=== PATIENT | female | born 1945 | race Caucasian/White ===

== ENCOUNTER → 2018-01-14 09:15 | Outpatient (CLI) | payer MEDICARE, OTHER, SELFPAY | PROVIDERS: PCP Family Medicine; Visit Provider Student in an Organized Health Care Education/Training Program | DX: M25.562 Pain in left knee (principal); S83.272D Complex tear of lateral meniscus, current injury, left knee, subsequent encounter; S83.232D Complex tear of medial meniscus, current injury, left knee, subsequent encounter; X58.XXXD Exposure to other specified factors, subsequent encounter; M17.12 Unilateral primary osteoarthritis, left knee | CPT/HCPCS: 20610; J1040 ==

== ENCOUNTER → 2018-03-04 10:50 | Outpatient (BNVA) | payer MEDICARE, OTHER, SELFPAY | PROVIDERS: Visit Provider Student in an Organized Health Care Education/Training Program | DX: M17.12 Unilateral primary osteoarthritis, left knee (principal); M25.462 Effusion, left knee | CPT/HCPCS: 20610; 99213; J7325 ==

== ENCOUNTER 2018-09-23 09:40 | Outpatient (CLI) | payer MEDICARE, OTHER, SELFPAY ==
--- NOTE | 2018-09-23 09:23 | DI.RAD_ITS ---
SYMPTOM/DIAGNOSIS: SURGICAL PLANNING LT TKA BILATERAL LOWER EXTREMITIES: 09/23/18 Bilateral AP views of the lower extremities were obtained for leg length determination. There are mild degenerative changes of both hips. There are degenerative changes of the joints of both knees.
== END 2018-09-23 10:00 ==
PROVIDERS: PCP Family Medicine; Referring Provider Family Medicine; Visit Provider Student in an Organized Health Care Education/Training Program
DX: M25.562 Pain in left knee (principal); M16.0 Bilateral primary osteoarthritis of hip; M17.0 Bilateral primary osteoarthritis of knee; I10 Essential (primary) hypertension
CPT/HCPCS: 99213; 77073

== ENCOUNTER 2018-09-27 07:05 | Outpatient (CLI) | payer MEDICARE, OTHER, SELFPAY ==
[2018-09-27 08:25] LABS: ALT 30 U/L (12-78); AST 21 U/L (15-37); Albumin 3.7 g/dL (3.4-5.0); Alkaline Phosphatase 96 U/L (46-116); Anion Gap 5.7 mmol/L (3-11); BUN 12 mg/dL (7-18); Bilirubin, Total 0.3 mg/dL (0.2-1.0); CO2 32.3 mmol/L (21.0-32.0); Calcium 9.2 mg/dL (8.5-10.1); Chloride 105 mmol/L (98-107); Cholesterol 172 mg/dL (50-200); Glucose 95 mg/dL (70-100); HDL Cholesterol 48 mg/dL (40-60); LDL CHOLESTEROL 91 mg/dL (<100); Potassium 4.3 mmol/L (3.5-5.1); Sodium 143 mmol/L (136-145); Total Protein 7.1 g/dL (6.4-8.2); Triglyceride 202 mg/dL (30-150)
== END 2018-09-27 07:25 ==
PROVIDERS: PCP Family Medicine; Visit Provider Family Medicine
DX: E78.5 Hyperlipidemia, unspecified (principal)
CPT/HCPCS: 36415; 80053; 80061; 83721

== ENCOUNTER 2018-10-18 09:58 | Outpatient (CLI) | payer MEDICARE, OTHER, SELFPAY ==
[2018-10-18 11:15] LABS: HCT 41.8 % (36.0-46.0); HGB 13.5 g/dL (12.0-15.5); Mean Corp. HGB Concentration 32.3 g/dL (32.0-36.0); Mean Corpuscular Hemoglobin 32.1 pg (27.0-33.0); Mean Corpuscular Volume 99.3 fL (80-95); Mean Platelet Volume 9.7 fL (8.0-11.0); Platelet Count 248 x1000/uL (130-400); RBC 4.21 m/cumm (4.00-5.20); RBC Distribution Width 12.2 % (11.7-14.6); White Blood Cell Count 5.85 k/cumm (4.4-10.8)
[2018-10-18 12:05] LABS: Anion Gap 8.8 mmol/L (3-11); BUN 13 mg/dL (7-18); CO2 28.2 mmol/L (21.0-32.0); Calcium 9.7 mg/dL (8.5-10.1); Chloride 102 mmol/L (98-107); Glucose 85 mg/dL (70-100); Potassium 4.6 mmol/L (3.5-5.1); Sodium 139 mmol/L (136-145)
== END 2018-10-18 10:18 ==
PROVIDERS: PCP Family Medicine; Visit Provider Student in an Organized Health Care Education/Training Program
DX: M25.562 Pain in left knee (principal); M17.12 Unilateral primary osteoarthritis, left knee; J44.9 Chronic obstructive pulmonary disease, unspecified; J45.909 Unspecified asthma, uncomplicated; I63.9 Cerebral infarction, unspecified; E66.9 Obesity, unspecified; Z01.818 Encounter for other preprocedural examination
CPT/HCPCS: 36415; 80048; 85027

== ENCOUNTER 2018-10-24 09:52 | Inpatient (IN) | payer MEDICARE, OTHER, SELFPAY ==
[2018-10-24] VITALS (9 sets, daily range): BP systolic 112–138; BP diastolic 55–74; PULSE 55–83; RESP 11–18; TEMP 36.6–36.7; O2SAT 92–98
[2018-10-24] MEDS: Lactated Ringers 1,000 ML 80 ML IV ×2 (11:02→15:45)
[2018-10-24] MEDS: Bupivacaine 0.25% Pres-Free 30 ML VIAL ×2 (11:31→13:57)
[2018-10-24] MEDS: Bupivacaine LIPOSOME/PF 133 MG/10 ML VIAL IJ ×2 (11:31→13:57)
[2018-10-24] MEDS: Celecoxib 200 MG CAP 400 MG PO (12:06)
[2018-10-24] MEDS: Acetaminophen 500 MG TAB 1000 MG PO ×2 (12:06→19:36)
[2018-10-24] MEDS: oxyCODONE-CR 10 MG TABCR PO (12:06)
[2018-10-24] MEDS: Gabapentin 300 MG CAP PO ×2 (12:06→21:39)
[2018-10-24] MEDS: ceFAZolin 2 GM/50 ML BAG IVPB (12:38)
[2018-10-24] MEDS: Normal Saline 20 ML VIAL (13:57)
[2018-10-24] MEDS: Ketorolac 30 MG/ML VIAL (13:57)
--- NOTE | 2018-10-24 14:34 | W.PM.OP ---
Date of service: 10/24/18 Time of Service: 14:35 Operative Note DATE OF PROCEDURE: 10/24/18 PRE-OP DIAGNOSIS: Left knee osteoarthritis POST-OP DIAGNOSIS: same PROCEDURE: Left Total Knee Replacement SURGEON: Alejandro Obando APPLICATIONS PROJECT MANAGER: Quinton Chirinos ANESTHESIA: regional and spinal ESTIMATED BLOOD LOSS: 100 PATHOLOGY: none sent TOURNIQUET TIME: 31 COMPLICATIONS: None Patient was transported to: PACU Patient's condition: stable Implants: 1. Depuy Attune Posterior Stabilized Femoral Component, Size 6 2. Depuy Attune Fixed Platform Tibial Component, Size 5 3. Depuy Attune 6x6 fixed, Stabilized Poly 4. Depuy Attune Patellar Component, Size 35 Indications: I have seen Jolynn in clinic for symptoms of left knee arthritis, confirmed with radiographic findings. She has exhausted nonoperative methods and was having significant limitations in daily function and desired better function and less pain. I discussed the technical details of a knee replacement. I explained the risks of the procedure to include, but not limited to, bleeding, infection, pain, stiffness, fracture, damage to nerves and vessels, damage to muscles and tendons, loosening, need for repeat procedure, blood clot and cardiopulmonary demise. Despite these risks, she elected to proceed. Findings: There was significant signs of arthritis throughout the knee. This was seen primarily in the medial compartment and the patellofemoral joint. Procedure Description: Jolynn was greeted in the preoperative holding area where the correct side was identified and marked. The consent was reviewed with the patient and signed. The history and physical was updated. All questions were answered. Preoperative mediacations were administered: Acetaminophen 1000mg, Celebrex 400mg, Gabapentin 300mg, and Oxycontin 10mg. An adductor canal block was then administered by the anesthesia team in the PACU. She was taken back to the operating room. A spinal anesthestic was then attempted but unsuccessful so a general anesthetic was administered. The patient was placed into the supine position on the operating room table. A nonsterile tourniquet was placed high onto the leg but only used for cementing. Posts were placed for positioning during the procedure. All bony prominences were well padded. Prophylactic antibiotics in the form of cefazolin were administered. 1g of Tranxemic Acid was given intravenously within 30 minutes of incision. The left leg was then prepped with Chloraprep and draped in a standard fashion with impervious stockinette and extremity drape with Iodine impregnated skin protection. A timeout to confirm correct identity, side and site, procedure, allergies, anesthesia, and medical concerns was performed. With the knee in some flexion, a midline incision was made overlying the knee. Full thickness skin flaps were raised once the extensor mechanism was encountered. These were raised medially and laterally. Any bleeding was controlled with electrocautery. Once the extensor mechanism was fully exposed, a medial parapatellar arthrotomy was performed in a flexed position. All bleeding from the arthrotomy and the geniculate arteries was coagulated. A medial subperiosteal peel was performed with electrocautery to the midcoronal plane. The fat pad was removed while keeping the patellar tendon protected. The anterior distal femur synovium was removed for later visualization. The ACL and PCL were resected and the anterior horn of the lateral meniscus was transected. The knee was then flexed with the patella everted. Large osteophytes from the tibia were removed. Large osteophytes from the femur were removed. Using a step drill, and based on preoperative templating, the femoral canal was entered. This was done with a step drill without any difficulty. The intramedullary distal femoral cut guide was inserted, set to a 5 degree valgus cut and 9mm cut thickness. The distal femoral cut guide was then held in position and pinned. With the soft tissues protected, the distal cut was performed. This was passed over a few times to ensure a planar cut. I then turned attention to the tibia. The extramedullary guide was placed onto the leg. The distal aspect was slid medial to adjust for position of center of ankle and stay in line with shaft of the tibia. Approximately 3-5 degrees of posterior slope was kept in the proximal cutting guide. The center of the guide was aligned with the PCL. The stylus was used to assess cut thickness. The medial side, most involved side, was set for a 4mm cut. This was then held in position and pinned into place with 2 additional pins and a cross pin for stability. The medial and lateral collateral ligaments were protected and the cut was performed. With this completed, it was assessed and noted to be of appropriate dimensions. The guide was removed. A spacer block was inserted and the knee was brought into extension. The 6mm spacer block provided full extension, without hyperextension and with stability of both the medial and lateral collateral ligaments was assessed. The pins from the femur and the tibia were then removed. The distal femur was then sized. The anterior stylus was placed onto the lateral ridge of the anterior femur. This indicated a size 6 femur. The external rotation of the guide was adjusted to 3 degrees to match the epicondylar axis, perpendicular to Polk?s line. The 4-in-1 cutting guide was the placed. The posterior medial femur cut was evaluated and appeared of good thickness. The spacer block was inserted underneath the cutting guide and stability was confirmed in 90 degrees of flexion. An vladimir wing was used to confirm appropriate position of the anterior cut to avoid notching. This cutting guide was ensured to be flush on the cut surface and then pinned into place with headed pins. While protecting the soft tissues, quad tendon, and collateral ligaments, the anterior and posterior cuts were performed with a saw. The central two pins were removed and the posterior and anterior chamfers were cut next. The notch-cutting guide was placed. This was pinned to lateralize the femoral component as much as possible while keeping it flush on the cut surface. This was then pinned into position. A reciprocating saw was used to make the notch cut. A rasp smoothed the cut surfaces. A trial posterior stabilized femoral component was then inserted, impacted down to the cut surfaces, and the lug holes were drilled. A provisional trial tibial component was placed and the knee was brought through range of motion. There was noted to be excellent extension and flexion. There was no significant instability. The patella was tracking without thumbs. The tibial cut surface was fully exposed. The medial and lateral menisci were removed. The tibia was then sized as a 5. The tibia had been previously marked during trialing to correspond to the center of the tibial component to help with rotation. The trial was aligned to this quinton, approximately rotated to the medial 1/3rd of the tibial tubercle. The trial was pinned into place. The tibia was prepared with a reamer and a keel punch. The knee was then brought into extension and the patella was measured as 25 mm. Using the patellar clamp and cut guide, this was resected to a flat surface with at least 13mm of thickness remaining. The size 35 patella fit the best. This was oriented and then clamped into position. The lugs were drilled. The trial components were removed. The final components, except for the polyethylene were opened on the back table. The periosteal and capsular tissues, especially posteriorly, around the knee were then systematically injected with a periarticular cocktail consisting of 50cc 0.25% Marcaine, 30mg Ketorolac, 10cc of Exparal and 50cc of injectable saline. The tourniquet was then inflated to 275mmHg. The knee was thoroughly irrigated with a pulse lavage and dried. On the back table, with the implants opened, the cement was mixed. 2 batches of antibiotic laden cement were prepared with vacuum assistance. After the cement was ready a small amount was placed on to the back side of the tibial component at the keel. A small amount was placed onto the posterior flange of the femur. Cement was manual pressurized and impregnated into the cut surface of the tibia. The tibial component was then inserted into the cut surface and impacted into position. Excess cement was removed and the component was reimpacted. Again, excess cement was removed and our attention was then turned to the femur. The femoral cut surface was once again dried and cement was manually impacted into the cut surface. The femoral component was lined with the lug holes and impacted. Excess cement was removed. It was ensured to be down against the cut surface. The trial polyethylene was then inserted and the leg was brought out into full extension for the duration of the cement curing process, approximately 15min. Cement was lastly manually impacted into the cut surface of the patella and the patellar button was clamped into position and held. During this process attention was turned to the gutters of the knee and for all interfaces for any excess cement. After the cement had finally cured, approximately 15min, the clamp was removed from the patella and the knee was taken through range of motion. A size 6mm polyethylene component provided the best range of motion and stability with less than 2mm gapping with medial and lateral stress and full extension without significant hyperextension. The patella was tracking with a no-thumbs technique. The trial poly was removed and once again the knee was checked for any loose, excess, or errant cement. The poly component was then inserted and impacted into position after cleaning and drying the tibial tray. The capsule was then reapproximated with a No. 1 Vicryl at multiple locations. The capsule was finally closed with a No. 2 Stratafix, barbed suture. The tourniquet was then released and the arthrotomy appeared watertight without significant bleeding. The second dosing of 1g TXA was started. Deep tissues were then reapproximated with 0 Vicryl and 2-0 Vicryl. The skin was closed with a running 3-0 Monocryl in a subcuticular fashion. This was reinforced with skin glue. A Mepilex silver dressing was applied along with a [id number] KEITH wrap. A CryoCuff was applied. Jolynn was transferred to the hospital bed without difficulty an suffering no apparent complication. She has a good prognosis. Physical therapy will start today and without restrictions, weight-bearing as tolerated. Aspirin 81mg BID will be used for DVT prophylaxis.
[2018-10-24] MEDS: Mometasone 220 MCG 14 DOSE INHALER 2 PUFF IH (19:34)
[2018-10-24] MEDS: Celecoxib 100 MG CAP 200 MG PO (19:35)
[2018-10-24] MEDS: Aspirin E.C. 81 MG TABEC PO (19:36)
[2018-10-24] MEDS: Escitalopram 10 MG TAB PO (21:39)
[2018-10-24] MEDS: Atorvastatin 10 MG TAB PO (21:39)
[2018-10-24] MEDS: oxyCODONE 5 MG TAB PO (21:57)
--- NOTE | 2018-10-24 22:56 | NUR.NOTE ---
Nursing Note: At 17:20 , pt received from [facility], post op left total knee anthrosplasty. AO x 4. Denied of discomfort. After an hour, PT worked out with her, able to ambulate and stayed on recliner chair until bedtime. Cryo cuff on incision site with mepilex and yadiel wrap dressing which is C/D/I. Medicated with oxycodone at 2200 hrs. and with good relief.
[2018-10-25 00:38] VITALS: BP 110/56; PULSE 64; RESP 18; TEMP 36.5; O2SAT 92
[2018-10-25 03:55] VITALS: BP 116/66; PULSE 74; RESP 18; TEMP 36.9; O2SAT 94
[2018-10-25] MEDS: oxyCODONE 5 MG TAB PO ×3 (04:00→11:34)
[2018-10-25] MEDS: Lactated Ringers 1,000 ML 80 ML IV (04:49)
[2018-10-25] MEDS: Acetaminophen 500 MG TAB 1000 MG PO ×2 (07:10→14:26)
[2018-10-25] MEDS: Mometasone 220 MCG 14 DOSE INHALER 2 PUFF IH (07:28)
[2018-10-25 07:45] VITALS: BP 105/54; PULSE 68; RESP 14; TEMP 37; O2SAT 98
[2018-10-25] MEDS: Aspirin E.C. 81 MG TABEC PO (09:15)
[2018-10-25] MEDS: Celecoxib 100 MG CAP 200 MG PO (09:15)
[2018-10-25] MEDS: Multivitamin TAB 1 TAB PO (09:15)
[2018-10-25] MEDS: Losartan 50 MG TAB PO (09:16)
[2018-10-25] MEDS: Docusate Sodium 100 MG CAP PO (09:17)
[2018-10-25] MEDS: Dexamethasone 4 MG TAB PO (09:17)
[2018-10-25] MEDS: Normal Saline Flush 10 ML SYR IV (09:27)
--- NOTE | 2018-10-25 11:00 | PT.INTREAT ---
Date of service: 10/25/18 Time of Service: 11:00 PT Notes Inpatient Physical Therapy Treatment Note [facility] Date: 10/25/18 PRECAUTIONS: Fall, WBAT on L SUBJECTIVE: Jolynn states this is easier than I thought it would be. OBJECTIVE: PAIN: Patient c/o L knee soreness with ther ex and gait training BED MOBILITY/TRANSFERS Supine-sit: I with HOB flat Sit-supine: I with HOB flat Sit-stand: S Stand-sit: S Bed-Chair: S GAIT Assistive Device: FWW Weight bearing: WBAT on L Assist: S Distance: 50' x2 Deviation: Step through gait pattern THEREX: Patient completed a LE strengthening and stabilization program, as per flow sheet. She was able to complete SLR x10, actively. STAIRS: Up/down 6x4 and 4x6 using B rails and a step-to pattern with supervision ASSESSMENT: Patient tolerated session well with minimal c/o L knee soreness with ther ex and gait training. She was able to tolerate a progression in gait distance with FWW support and supervision. She would benefit from continued gait and transfer training as well as strengthening for improved mobility. PLAN: Continue with PT's POC TREATMENT CODE/TIME: 30 minutes; 46427, [id number]
--- NOTE | 2018-10-25 11:28 | IN_ITS ---
Date of service: 10/24/18 Time of Service: 16:28 PT Notes Inpatient Physical Therapy Evaluation Date: 10/24/2018 Referring Doctor: Alejandro Obando MD PT Orders: PT CONSULT: S/P L TKA Precautions: Fall. Standard. WBAT on L LE. Patient Profile/Admitting Diagnosis: Patient is a 73-year-old female who has primary unilateral osteoarthritis of the left knee and is S/P L total knee arthroplasty. 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) Depressive disorder (Chronic) Chronic obstructive lung disease (Chronic 09/17/12) CVA (cerebral vascular accident) (Chronic 08/15/16) Atypical chest pain (Resolved) Benign paroxysmal positional vertigo (Resolved) Carpal tunnel syndrome (Resolved) Contact dermatitis (Resolved) Essential hypertension (Resolved) Fibrocystic breast disease (Resolved) H/O echocardiogram (Resolved) Neck pain (Resolved) Palpitations (Resolved) Plantar fasciitis (Resolved) Sleep disorder (Resolved 09/17/12) Smoker (Resolved) Tightness in chest (Resolved) Trigger finger, left index finger (Resolved) Vertigo (Resolved) Surgical History H/O reduction mammoplasty (Resolved) History of bilateral tubal ligation (Resolved) Colonoscopy - IV Sedation (~01/2009) ECHO (~06/2007) Ligation of fallopian tube (~1982) Reduction mammoplasty (~09/2006) Social History/Home Situation: Patient lives with in a 1-floor house with a flight of stairs to enter and with rails on B sides. She likes to garden and states that she has done some weeding in her garden on her butt as she has been having pain on L knee. She was indepednent with all aspects of ADLs without the need for assistive ambulatory device nor adaptive equipment. Current Functional Limitations: Needs assistance with all bed mobility, transfers, and ambulation using FWW Equipment Owned/DME: FWW, [place], bilateral axillary crutches Subjective: Patient is pleasant and cooperative. She is agreeable to a PT consult and treatment. She states that she just feels a dull ache on the lateral thigh that is not too unpleasant. She denies dizziness, headache, and chest pain throughout this PT consultation. Objective: General Observation: Cryocuff on L knee. KEITH wraps on L LE. IV in R UE. Anti-DVT pumps on L leg. Mental Status: Alert and oriented x 3 Pain: 1/10 on the L knee ROM: Right Upper Extremity: Shoulder Flexion WFL. Shoulder abduction WFL. Elbow flexion WFL. Wrist flexion WFL. Functional opening and closing of hand WFL. Left Upper Extremity: Shoulder Flexion WFL. Shoulder abduction WFL. Elbow flexion WFL. Wrist flexion WFL. Functional opening and closing of hand WFL. Right Lower Extremity: Hip flexion WFL. Hip abduction WFL. Knee flexion WFL. Ankle dorsiflexion WFL. Ankle plantarflexion WFL. Left Lower Extremity: Hip flexion 0-120. Hip abduction WFL. Knee flexion 0-110 with limitation of range from KEITH wraps and dull ache. Knee extension -5. Ankle dorsiflexion WFL. Ankle plantarflexion WFL. Strength: Right Upper Extremity: Shoulder flexors 5/5. Shoulder abductors 5/5. Elbow flexors 5/5. Elbow extensors 5/5. Admitted Attorneys strong. Left Upper Extremity: Shoulder flexors 5/5. Shoulder abductors 5/5. Elbow flexors 5/5. Elbow extensors 5/5. Admitted Attorneys strong. Right Lower Extremity: Hip flexors 5/5. Hip abductors 5/5. Knee flexors 5/5. Knee extensors 5/5. Ankle dorsiflexors 5/5. Ankle plantarflexors 5/5. Left Lower Extremity:Hip flexors 4/5. Hip abductors 4+/5. Knee flexors 3-/5. Knee extensors 3-/5. Ankle dorsiflexors 5/5. Ankle plantarflexors 5/5. Sensation: Intact test to pain and pressure to both LE. Bed Mobility/Transfers: Supine to sit CGA with HOB up to 30 degrees Sit to supine CGA with HOB up to 30 degrees Sit to stand minimal assist Stand to sit minimal assist Bed to chair minimal assist Chair to bed minimal assist Gait: Patient tolerated in room ambulation 10 feet + 1 turn plus two back steps using FWW WBAT on left LE and minimal assist for safety with no report of increased discomfort left knee and thigh. Dizziness nor chest discomfort. Balance: Static Sitting: Good Dynamic Sitting: Good Static Standing: Dynamic Standing: Special Tests: Mobility Limitations Standardized Measure [facility] AM-PAC 6 clicks Basic Mobility Inpatient Short Form: Raw Score: 18 CMS Score: 47% deficit Informed Consent/Education: Patient instructed in purpose of PT consult and plan of care. Patient was instructed with performance of seated exercises in order to facilitate circulation to recovering left LE and maximize range of motion. Assessment: Patient is a 73-year-old female who has primary unilateral osteoarthritis of the left knee and is S/P L total knee arthroplasty. Patient presents with clinical signs and symptoms consistent with current/admitting diagnoses that have resulted to mobility limitations, gait instability, generalized weakness, and impairment of motor control as demonstrated by the following impairment level findings: 1. Decreased strength to B LE major muscle groups 2. Impaired sitting/standing balance 3. Impaired activity tolerance 4. Limitation of joint range of motion in left knee joint Impairments are contributing to the following functional limitations: 1. Dependent bed mobility skills 2. Increased dependence with transfers 3. Inability to safely ambulate without assistive device and physical assistance 4. Increase completion time for mobility ADL performance 5. Increased fall risk 6. Inability to negotiate steps alone safely Patient is assessed as a Moderate 36188 complexity based on the following: History: Patient is a 73-year-old cognitively intact female who has primary unilateral osteoarthritis of the left knee and is S/P L total knee arthroplasty with premorbid independent mobility level Examination: Underlying impairments and functional limitations Presentation: Evolving Decision Makin Goals: Goals X1 week 1. Supine-Sit independent 2. Sit-Supine independent 3. Sit-Stand independent 4. Stand-Sit independent 5. Bed-Chair independent 6. Chair-Bed independent 7. Independent gait on level surface with use of least restrictive device for at least 300 feet without report of pain nor dyspnea 8. Independent stair negotiation while holding onto bilateral rails for at least 10 steps without report of pain nor dyspnea 9. Independent with home exercise program 10. Good static and dynamic standing balance/tolerance Plan of Care/Treatment Plan: 1-2x/day, 7 days/week x 1 week. Plan of care has been reviewed with the TELEPHONE STERILIZER providing the service under Physical Therapy direction. Initiate Physical Therapy intervention for strengthening, bed mobility, transfers, gait, stairs, balance training, use of assistive device. DISCHARGE RECOMMENDATIONS: No equipment needs at this time. May benefit from outpatient physical therapy services once cleared by orthopedic surgeon in order to return to independent premorbid level . TREATMENT CODE/TIME: 27721 for 25 minutes, 975 17 minutes beginning at 16:28 PM Thank you for this referral. Maria Isabel Smith, PT, DPT, CLT [facility]
[2018-10-25 12:00] VITALS: BP 110/73; PULSE 67; RESP 14; TEMP 37.2; O2SAT 95
--- NOTE | 2018-10-25 13:57 | DSE_ITS ---
Date of service: 10/25/18 Time of Service: 13:56 DS: Diagnosis Discharge Diagnosis (1) Left knee DJD: Status: Chronic Discharge Plan Disposition Patient Disposition: HOME Condition: Good Discharge Details Reason For Visit: LEFT KNEE DJD Admit Date/Time: 10/24/18 09:52 Admit Provider: Alejandro Obando Attending Provider: Alejandro Obando Primary Care Provider: Yue Hoffmann [facility] Hospital Course: Patient was admitted to the medical/surgical floor following the procedure. It was tolerated well without any notable medical, surgical, or anesthetic complications. Mobilization began postoperatively. The goddard catheter was removed and voiding spontaneously. Vitals were stable. Physical therapy worked with the patient and was cleared for discharge home. No acute medical issues. Home Meds and New Rx's Prescriptions: New celecoxib 200 mg capsule 200 mg PO BID PRN (Reason: pain) Qty: 60 RF: 1 aspirin 81 mg tablet,delayed release (DR/EC) 81 mg PO BID Qty: 60 RF: 0 acetaminophen 500 mg tablet 1,000 mg PO Q8H PRN (Reason: pain) Qty: 90 RF: 3 oxycodone 5 mg tablet 5 mg PO Q4H Qty: 18 RF: 0 pantoprazole 40 mg tablet,delayed release (DR/EC) 40 mg PO DAILY Qty: 30 RF: 0 Continued losartan 50 mg tablet 50 mg PO DAILY Qty: 90 RF: 11 zolpidem 5 mg tablet 5 mg PO HS PRN (Reason: insomnia) Qty: 90 RF: 0 triamcinolone acetonide 0.1 % cream 1 applic TP BID PRN (Reason: redness) Qty: 80 RF: 1 multivitamin 1 EACH tablet 1 tab PO DAILY RF: 0 albuterol sulfate [ProAir HFA] 90 mcg/actuation HFA aerosol inhaler 1 - 2 puff Inhalation Q4H PRN Qty: 3 RF: 12 diphenhydramine HCl 25 MG capsule 50 mg PO PRN RF: 0 atorvastatin 10 mg tablet 10 mg PO HS RF: 0 Flovent HFA 12 GM HFA aerosol inhaler 2 puff Inhalation BID RF: 0 escitalopram oxalate [Lexapro] 10 mg tablet 10 mg PO HS RF: 0 Discontinued ASPIRIN 81 MG tablet 1 tab PO HS RF: 0 ibuprofen 200 MG tablet 2 tab PO QID PRNRF: 0 acetaminophen [Acetaminophen Extra Strength] 500 MG tablet 1,000 mg PO Q8H PRN PRNQty: 90 RF: 1 Discharge Instructions Additional Instructions: Dr. Obando?s Total Knee Discharge Instructions Activity: The most important activity is to walk. You should try to take short walks a few times a day. It is important that when resting you work on keeping the knee straight. Avoid putting a pillow behind the knee as this will encourage flexion. Work on range of motion exercises as provided by Physical Therapy. - Start outpatient physical therapy within 2 weeks. - You should wear the LEONEL hose on both legs for 4 weeks. Dressing: Keep the surgical dressing in place for at least one week. After the first week it may be removed and replace with light gauze and tape or nothing. It may get wet after 3 days but avoid soaking the dressing. If it gets wet, just lightly pat dry. Medications: - You should take Tylenol and anti-inflammatory (Celebrex) as your primary pain control medications. If the Celebrex is too expensive, you may take Ibuprofen 600mg every 8 hours as needed. - You have been prescribed a stronger pain medication (Oxycodone) for breakthr ough pain, take as needed as prescribed. - You will be taking Aspirin 81mg twice a day for DVT prevention unless instructed otherwise. - You have been prescribed a medicine for stomach acid prevention, Pantoprazole. You will take one pill once a day. If this medication is too expensive, you may take Omeprazole ente-pkm-cudotin. - If you have constipation you should take Colace or Miralax (both [id number]). It takes most people 3-4 days to have a bowel movement. Follow-up: 2 weeks Stand Alone Forms: Nursing Discharge Form Referrals: Alejandro Obando MD [ [facility] STAFF PHYSICIAN] - 11/06/18 12:45 pm Activity:: Activity as Tolerated Equipment/Supplies:: Walker Diet:: As Tolerated Discharge Orders Discharge Orders: Discharge Order (Routine); Ordered 10/25/18 Ordered By: Alejandro Obando DS: Data Vitals/I&O Vitals and I&O: Vital Signs Temperature 37.2 C 10/25/18 12:00 Temperature Source Tympanic 10/25/18 12:00 Pulse 67 10/25/18 12:00 Pulse Rhythm Regular 10/25/18 04:42 Respiratory Rate 14 10/25/18 12:00 Respiratory Effort Non-Labored 10/25/18 04:42 Respiratory Depth Normal 10/25/18 04:42 Respiratory Pattern Normal 10/25/18 04:42 Blood Pressure 110/73 10/25/18 12:00 Pulse Oximetry 95 10/25/18 12:00 Respiratory End-tidal CO2 42 10/24/18 15:10 Oxygen Delivery Method Room Air 10/25/18 12:00 Oxygen Flow Rate 0 10/25/18 12:00 Pain Level 4 10/25/18 11:34 Intake & Output 10/24/18 10/25/18 10/25/18 23:59 11:59 23:59 Intake Total 1398.667 / 4482.231 2544 / 2514 240 / 2514 Output Total 250 / 250 800 / 800 Balance 1148.667 / 0858.306 3141 / 1714 240 / 1714 Weight 108.9 kg Intake: IV 1158.667 / 6894.228 7234 / 1464 Oral 240 / 240 810 / 1050 240 / 1050 Output: Urine 100 / 100 800 / 800 Estimated Blood Loss 150 / 150 Other: Urine Color Yellow Light Lilia Urine Appearance Clear Clear Emesis Description None PFSH Medical History Left knee DJD (Chronic) Pelvic floor dysfunction (Chronic 11/09/16) Increased body mass index (Chronic) Hyperlipidemia (Chronic) 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/16) Diverticulosis of colon without diverticulitis (Chronic 01/08/09) 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) Depressive disorder (Chronic) Chronic obstructive lung disease (Chronic 09/17/12) CVA (cerebral vascular accident) (Chronic 08/15/16) Atypical chest pain (Resolved) Benign paroxysmal positional vertigo (Resolved) Carpal tunnel syndrome (Resolved) Contact dermatitis (Resolved) Essential hypertension (Resolved) Fibrocystic breast disease (Resolved) H/O echocardiogram (Resolved) Neck pain (Resolved) Palpitations (Resolved) Plantar fasciitis (Resolved) Sleep disorder (Resolved 09/17/12) Smoker (Resolved) Tightness in chest (Resolved) Trigger finger, left index finger (Resolved) Vertigo (Resolved) Surgical History History of D&C (Acute) History of tonsillectomy (Chronic) H/O reduction mammoplasty (Resolved) History of bilateral tubal ligation (Resolved) Colonoscopy - IV Sedation (~01/2009) ECHO (~06/2007) Ligation of fallopian tube (~1982) Reduction mammoplasty (~09/2006) Family History Mother Heart disease Smoker Father Heart disease Colitis Stroke Sister Asthma Brother Prostate cancer Maternal Grandfather Neoplasm Lung cancer Paternal Grandfather Heart disease Stroke Maternal Grandmother Stomach cancer Paternal Grandmother Diabetes Heart disease Daughter Graves' disease Daughter No problems noted. Social History Smoking/Tobacco Use Status: Former Tobacco Use Quit Date: 06/11/88 Tobacco: How many years used: 15 Alcohol Intake: current Alcohol Intake frequency: holidays/special occasions only Alcohol type: wine Drug use: Never Substance use type: does not use Caregiver/Support person: Yes Household members: spouse and other Details: 2 Housing: house Communication Needs: None Do you need help understanding health information?: Rarely Pets and animals: Yes Pets and animals: dog(s) and bird(s) Do you think of yourself as: straight/heterosexual Current gender identity: female What is your relationship status?: How often do you talk on the phone with friends or family?: twice per week How often do you get together with friends or relatives?: once per week How often do you attend rastafarian or orthodoxy services?: decline to answer Do you belong to any clubs or organized social groups?: yes Panel score (0-1 are the most socially isolated patients): 3 What type of physical activity do you participate in: walking, aerobic and bicycling Duration: 30-45 minutes/day Frequency: daily Nani/Sabianist: None Special nani needs: No Seatbelt use: always Drive intox or ride w/intox driver license technician: No
--- NOTE | 2018-10-25 14:10 | CHAPLAIN ---
Jolynn was sitting up in her chair when I visited. She said she is doing well with Pt and expects to go home later today. She was pleasant and easily engaged in a conversation.
--- NOTE | 2018-10-28 15:59 | INDS_ITS ---
Date of service: 10/28/18 PT Notes Inpatient Physical Therapy Discharge Summary Dates: 10/28/2018 Dates of Service: 10/24/2018 through 10/25/2018 This is a clinical summary of care provided on the duration of dates listed above. No charge was made in the completion of this documentation. Referring Doctor: Alejandro Obando MD PT Orders: PT CONSULT: S/P L TKA Precautions: Fall. Standard. WBAT on L LE. Patient Profile/Admitting Diagnosis: Patient is a 73-year-old female who has primary unilateral osteoarthritis of the left knee and is S/P L total knee arthroplasty. 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) Depressive disorder (Chronic) Chronic obstructive lung disease (Chronic 09/17/12) CVA (cerebral vascular accident) (Chronic 08/15/16) Atypical chest pain (Resolved) Benign paroxysmal positional vertigo (Resolved) Carpal tunnel syndrome (Resolved) Contact dermatitis (Resolved) Essential hypertension (Resolved) Fibrocystic breast disease (Resolved) H/O echocardiogram (Resolved) Neck pain (Resolved) Palpitations (Resolved) Plantar fasciitis (Resolved) Sleep disorder (Resolved 09/17/12) Smoker (Resolved) Tightness in chest (Resolved) Trigger finger, left index finger (Resolved) Vertigo (Resolved) Surgical History H/O reduction mammoplasty (Resolved) History of bilateral tubal ligation (Resolved) Colonoscopy - IV Sedation (~01/2009) ECHO (~06/2007) Ligation of fallopian tube (~1982) Reduction mammoplasty (~09/2006) Social History/Home Situation: Patient lives with in a 1-floor house with a flight of stairs to enter and with rails on B sides. She likes to garden and states that she has done some weeding in her garden on her butt as she has been having pain on L knee. She was indepednent with all aspects of ADLs without the need for assistive ambulatory device nor adaptive equipment. Current Functional Limitations: Needs assistance with all bed mobility, transfers, and ambulation using FWW Equipment Owned/DME: FWW, SC, bilateral axillary crutches Subjective:NT Objective: General Observation: NT Mental Status: NT Pain: NT ROM: Right Upper Extremity: Shoulder Flexion WFL. Shoulder abduction WFL. Elbow flexion WFL. Wrist flexion WFL. Functional opening and closing of hand WFL. Left Upper Extremity: Shoulder Flexion WFL. Shoulder abduction WFL. Elbow flexion WFL. Wrist flexion WFL. Functional opening and closing of hand WFL. Right Lower Extremity: Hip flexion WFL. Hip abduction WFL. Knee flexion WFL. Ankle dorsiflexion WFL. Ankle plantarflexion WFL. Left Lower Extremity: Hip flexion 0-120. Hip abduction WFL. Knee flexion 0-110 with limitation of range from KEITH wraps and dull ache. Knee extension -5. Ankle dorsiflexion WFL. Ankle plantarflexion WFL. Strength: Right Upper Extremity: Shoulder flexors 5/5. Shoulder abductors 5/5. Elbow flexors 5/5. Elbow extensors 5/5. Nurses Medical Assistants Phlebotomists strong. Left Upper Extremity: Shoulder flexors 5/5. Shoulder abductors 5/5. Elbow flexors 5/5. Elbow extensors 5/5. Nurses Medical Assistants Phlebotomists strong. Right Lower Extremity: Hip flexors 5/5. Hip abductors 5/5. Knee flexors 5/5. Knee extensors 5/5. Ankle dorsiflexors 5/5. Ankle plantarflexors 5/5. Left Lower Extremity:Hip flexors 4/5. Hip abductors 4+/5. Knee flexors 3-/5. Knee extensors 3-/5. Ankle dorsiflexors 5/5. Ankle plantarflexors 5/5. Sensation: Intact test to pain and pressure to both LE. Bed Mobility/Transfers: Supine to sit CGA with HOB up to 30 degrees Sit to supine CGA with HOB up to 30 degrees Sit to stand minimal assist Stand to sit minimal assist Bed to chair minimal assist Chair to bed minimal assist Gait: Patient tolerated in room ambulation 50 feet x 2 using FWW WBAT on left LE and supervision for safety with no report of increased discomfort left knee and thigh. Dizziness nor chest discomfort. Balance: Static Sitting: Good Dynamic Sitting: Good Static Standing: Dynamic Standing: Assessment: Patient is a 73-year-old female who has primary unilateral osteoarthritis of the left knee and is S/P L total knee arthroplasty. Patient presents with clinical signs and symptoms consistent with current/admitting diagnoses that have resulted to mobility limitations, gait instability, generalized weakness, and impairment of motor control as demonstrated by the following impairment level findings: 1. Decreased strength to B LE major muscle groups 2. Impaired sitting/standing balance 3. Impaired activity tolerance 4. Limitation of joint range of motion in left knee joint Impairments are contributing to the following functional limitations: 1. Dependent bed mobility skills 2. Increased dependence with transfers 3. Inability to safely ambulate without assistive device and physical assistance 4. Increase completion time for mobility ADL performance 5. Increased fall risk 6. Inability to negotiate steps alone safely Goals: Goals X1 week 1. Supine-Sit independent MET 2. Sit-Supine independent MET 3. Sit-Stand independent NOT MET 4. Stand-Sit independent NOT MET 5. Bed-Chair independent NOT MET 6. Chair-Bed independent NOT MET 7. Independent gait on level surface with use of least restrictive device for at least 300 feet without report of pain nor dyspnea NOT MET 8. Independent stair negotiation while holding onto bilateral rails for at least 10 steps without report of pain nor dyspnea NOT MET 9. Independent with home exercise program NOT MET 10. Good static and dynamic standing balance/tolerance NOT MET DISCHARGE RECOMMENDATIONS: No equipment needs at this time. May benefit from outpatient physical therapy services once cleared by orthopedic surgeon in order to return to independent premorbid level . TREATMENT CODE/TIME: OK Thank you for this referral. Maria Isabel Smith, PT, DPT, CLT [facility]
== END 2018-10-25 16:30 | disposition home or self-care (01) | DRG 470 ==
LOC: PDS 13:54 → MS 14:51
PROVIDERS: Admitting Provider Student in an Organized Health Care Education/Training Program; PCP Family Medicine; Visit Provider Student in an Organized Health Care Education/Training Program
PROC: 0SRD0J9 Replacement of Left Knee Joint with Synthetic Substitute, Cemented, Open Approach (ICD-10-PCS; CPT 27447; principal; 2018-10-24 13:15)
DX: M17.12 Unilateral primary osteoarthritis, left knee (principal); Z96.652 Presence of left artificial knee joint; E78.5 Hyperlipidemia, unspecified; J44.9 Chronic obstructive pulmonary disease, unspecified; Z86.73 Personal history of transient ischemic attack (TIA), and cerebral infarction without residual deficits; Z87.891 Personal history of nicotine dependence; I10 Essential (primary) hypertension
CPT/HCPCS: 27447; 94640; 97110; 97162; 97530; NC; J0690; J1885; J2250; J2405; J3010; J8540

== ENCOUNTER 2018-11-06 12:57 | Outpatient (CLI) | payer MEDICARE, OTHER, SELFPAY ==
--- NOTE | 2018-11-06 12:53 | DI.RAD_ITS ---
SYMPTOMS/DIAGNOSIS: FIRST POSTOP VISIT FOLLOWING LEFT TOTAL KNEE ARTHROPLASTY LEFT KNEE: A single lateral upright image of the left knee is provided and reveals a TKA, the elements of which appear to be in good position in the lateral plane. The surrounding bone appears intact. LEG LENGTH STUDY: The left leg measures 89 cm, the right leg 89 cm. Note is made of a left knee TKA. There are degenerative changes involving the right knee.
== END 2018-11-06 13:17 ==
PROVIDERS: PCP Family Medicine; Referring Provider Family Medicine; Visit Provider Student in an Organized Health Care Education/Training Program
DX: M17.12 Unilateral primary osteoarthritis, left knee (principal); Z96.652 Presence of left artificial knee joint; Z47.1 Aftercare following joint replacement surgery; M17.11 Unilateral primary osteoarthritis, right knee
CPT/HCPCS: 73560; 77073

== ENCOUNTER → 2018-12-04 09:19 | Outpatient (BNVA) | payer MEDICARE, OTHER, SELFPAY | PROVIDERS: PCP Family Medicine; Referring Provider Family Medicine; Visit Provider Student in an Organized Health Care Education/Training Program | DX: Z47.1 Aftercare following joint replacement surgery (principal); Z96.652 Presence of left artificial knee joint; M23.304 Other meniscus derangements, unspecified medial meniscus, left knee ==

== ENCOUNTER → 2019-01-15 08:57 | Outpatient (BNVA) | payer MEDICARE, OTHER, SELFPAY | PROVIDERS: Referring Provider Family Medicine; Visit Provider Student in an Organized Health Care Education/Training Program | DX: Z47.1 Aftercare following joint replacement surgery (principal); Z96.652 Presence of left artificial knee joint; I10 Essential (primary) hypertension; J44.9 Chronic obstructive pulmonary disease, unspecified ==

== ENCOUNTER 2019-03-25 01:39 | Outpatient (CLI) | payer MEDICARE, OTHER, SELFPAY ==
--- NOTE | 2019-03-25 11:13 | DI.MAMMO_ITS ---
EXAM: MAMMO SCREENING CLINICAL HISTORY: screening Z12.39 TECHNIQUE: Mammograms were interpreted according to the usual protocol including computer analysis w [employer] CAD system, tomosynthesis and C-view imaging. COMPARISON: Current examination is compared with previous examinations including November 2017 FINDINGS: Breasts are of moderate density with fairly symmetrical distribution of fibroglandular tissue. No do minant mass or clumped microcalcification is identified in either breast. Current examination is com pared with previous examinations including November 2017 and there has been no gross interval change in a ppearance in comparison with the previous studies. IMPRESSION: No specific evidence of malignancy at this time. Routine screening examinations are suggested at year ly intervals in this age group according the ACS/ACR guidelines. Category 1, breast density category B. BI-RADS Cat 1 - Negative Breast Density - Category B - Scattered areas of fibroglandular density
== END 2019-03-25 01:59 ==
PROVIDERS: PCP Family Medicine; Visit Provider Family Medicine
DX: Z12.31 Encounter for screening mammogram for malignant neoplasm of breast (principal)
CPT/HCPCS: 77063; 77067

== ENCOUNTER 2019-04-25 01:46 | Outpatient (CLI) | payer MEDICARE, OTHER, SELFPAY ==
[2019-04-25 09:11] LABS: FREE T4 0.89 ng/dL (0.76-1.46)
== END 2019-04-25 02:06 ==
PROVIDERS: PCP Family Medicine; Visit Provider Family Medicine
DX: R79.89 Other specified abnormal findings of blood chemistry (principal); I10 Essential (primary) hypertension
CPT/HCPCS: 36415; 84439; 84443

== ENCOUNTER 2019-10-14 10:52 | Outpatient (REF) | payer MEDICARE, OTHER, SELFPAY ==
[2019-10-14 21:38] LABS: ALT 33 U/L (14-59); AST 16 U/L (15-37); Albumin 3.7 g/dL (3.4-5.0); Alkaline Phosphatase 102 U/L (46-116); Anion Gap 7.6 mmol/L (3-11); BUN 11 mg/dL (7-18); Bilirubin, Total 0.3 mg/dL (0.2-1.0); CO2 29.4 mmol/L (21.0-32.0); CREATININE 0.89 mg/dL (0.55-1.02); Calcium 9.3 mg/dL (8.5-10.1); Calculated LDL 71 mg/dL (<100); Chloride 103 mmol/L (98-107); Cholesterol 176 mg/dL (<200); Glucose 95 mg/dL (74-106); HDL Cholesterol 41 mg/dL (40-60); Potassium 4.1 mmol/L (3.5-5.1); Sodium 140 mmol/L (136-145); TSH (W/Ref FT4) 2.68 uIU/mL (0.36-3.74); Total Protein 6.9 g/dL (6.4-8.2); Triglyceride 324 mg/dL (<150)
== END 2019-10-14 11:12 ==
LOC: LBN 10:52
PROVIDERS: PCP Family Medicine; Visit Provider Family Medicine
DX: I10 Essential (primary) hypertension (principal); R03.0 Elevated blood-pressure reading, without diagnosis of hypertension; R79.89 Other specified abnormal findings of blood chemistry; J44.9 Chronic obstructive pulmonary disease, unspecified
CPT/HCPCS: 80053; 80061; 84443

== ENCOUNTER 2019-10-20 09:53 | Outpatient (CLI) | payer MEDICARE, OTHER, SELFPAY ==
--- NOTE | 2019-10-20 07:45 | DI.RAD_ITS ---
EXAM: XR KNEE LT 2V AP,LAT CLINICAL HISTORY: annual f/u TECHNIQUE: COMPARISON: CR XR knee LT 1V from 11/06/2018 FINDINGS: Two views were obtained. There is a total knee joint replacement in position. The components appear well seated. No other significant bony abnormality seen. IMPRESSION:
== END 2019-10-20 10:13 ==
PROVIDERS: PCP Family Medicine; Visit Provider Student in an Organized Health Care Education/Training Program
DX: Z96.652 Presence of left artificial knee joint (principal); Z47.1 Aftercare following joint replacement surgery
CPT/HCPCS: 99213; 73560

== ENCOUNTER 2020-01-22 08:14 | Emergency (ER) | payer MEDICARE, OTHER, SELFPAY ==
[2020-01-22 08:23] VITALS: BP 163/89; PULSE 66; RESP 18; TEMP 36.5; O2SAT 97
[2020-01-22 08:32] LABS: Bilirubin Negative (Negative); Blood Negative (Negative); Clarity Clear (Clear); Glucose Negative (Negative); Ketones Negative (Negative); Leukocyte Esterase Moderate (Negative); Nitrite Negative (Negative); Urobilinogen 0.2 EU/dL (Up TO 0.2); pH 8.5 (5-8)
--- NOTE | 2020-01-22 08:32 | W.ED.GENAD ---
Discharge Plan Disposition Patient Disposition: HOME Condition: Stable Discharge Details Chief Complaint: FlankPain Clinical Impression: Acute right flank pain Primary Care Provider: Yue Hoffmann ED Provider: Diana Motta Home Meds and New Rx's Prescriptions: No Action aspirin 81 mg tablet,delayed release (DR/EC) 81 mg PO DAILY RF: 0 zolpidem 5 mg tablet 5 mg PO HS PRN (Reason: insomnia) Qty: 60 RF: 0 multivitamin 1 EACH tablet 1 tab PO DAILY RF: 0 amoxicillin 500 mg capsule 2,000 mg PO ONCE Qty: 4 RF: 0 triamcinolone acetonide 0.1 % cream 1 applic TP BID PRN (Reason: redness) Qty: 80 RF: 1 albuterol sulfate [ProAir HFA] 90 mcg/actuation HFA aerosol inhaler 1 - 2 puff Inhalation Q4H PRN Qty: 3 RF: 12 atorvastatin 10 mg tablet 10 mg PO HS Qty: 90 RF: 4 escitalopram oxalate [Lexapro] 10 mg tablet 10 mg PO HS Qty: 90 RF: 5 Flovent HFA 110 mcg/actuation HFA aerosol inhaler 2 puff Inhalation BID Qty: 36 RF: 5 losartan 50 mg tablet 50 mg PO DAILY Qty: 90 RF: 11 Myrbetriq 25 mg tablet extended release 24 hr 25 mg PO DAILY Qty: 90 RF: 4 acetaminophen 500 mg tablet 1,000 mg PO Q8H PRN (Reason: pain) Qty: 90 RF: 3 Discharge Instructions Instructions: Muscle Strain (ED), Flank Pain (ED) Additional Instructions: Follow up with primary care provider in 3-5 days. Return to ED sooner if any worsening or concerns. Increase oral fluids. Please take Tylenol or Ibuprofen with food every 4-6 hours as needed for pain and swelling. Take muscle relaxer as directed. Return for any worsening pain, nausea vomiting, fever, chills or shortness of breath. Referrals: Yue Hoffmann MD, [place] [Primary Care Provider] - Discharge Data Discharge Date/Time-TO BE ENTERED AT DEPARTURE: 01/22/20 10:21 Medical Decision Making <Diana Motta - Last Filed: 01/22/20 14:22> At this time work-up ordered including CBC, CMP, lipase urinalysis. Differential diagnosis includes but not limited to musculoskeletal strain, kidney stone, cholecystitis 1009: Spoke with radiologist, nothing acute on CT abdomen pelvis. EXAM: CT ABDOMEN PELVIS W CLINICAL HISTORY: Right flank pain TECHNIQUE: Imaging Protocol: Axial computed tomography images with coronal and sagittal reformatted images were created and reviewed CONTRAST MATERIAL: Intravenous: Omnipaque 350 Contrast volume:100 mL Oral: No COMPARISON: No exams were available for comparison FINDINGS: ABDOMEN: Lung Bases: Normal where visualized. Liver: Normal density. No measurable mass. Portal, Superior Mesenteric, and Splenic Veins: Unremarkable. Gallbladder and Biliary Tract: No radiodense calculus or dilation. Pancreas: Normal density, no abnormal calcifications or inflammatory process. Spleen: Normal. Adrenals: No masses seen. Kidneys: Normal size, contour and axis. No radiodense stones or obstructive uropathy. No masses seen. Note is made of a circum aortic left renal vein. Abdominal Aorta: Abdominal portion non-dilated. Mild atherosclerosis. Bowel: No obstruction or bowel wall thickening. Appendix is unremarkable. Small hiatal hernia. Peritoneal Cavity: No ascites, collection or mesenteric inflammatory response. Lymph Nodes: Within normal limits. Bones: Unremarkable. Soft Tissues: Unremarkable. PELVIS: Bladder: Symmetric distention, no gross wall thickening. Reproductive Organs: Unremarkable as visualized. Lymph Nodes: Within normal limits. Bones: Degenerative changes in the spine. IMPRESSION: No acute abdominal or pelvic process. Patient discharged home after discussing CT results and lab results with patient, verbalized understanding. At this time I do feel it is most likely musculoskeletal in origin. Discussed strict return instructions including increased pain, nausea vomiting, fever or any concerns to return to the ER. Patient was hemodynamically stable time this dictation, this text was generated using [email or web address] system, please disregard any oddities of phrase or misspellings. <Keshav Mack MD - Last Filed: 01/22/20 10:08> I had a [id number] encounter with the patient. I evaluated the patient. I discussed case with SHEARING SHED WORKER/PA and I reviewed SHEARING SHED WORKER/PA note and agree with note as documented HPI <Diana Motta - Last Filed: 01/22/20 14:22> General Mode of arrival: ambulatory. Date/Time Provider Initiated Documentation: 01/22/20 08:15. Limitations to Documentation: no limitations. Information obtained by: patient. HPI Narrative: 74-year-old female presents with right flank pain which began suddenly 10:00 last evening she reports increased pain with movement, radiation into right upper quadrant. Denies any nausea, vomiting, diarrhea, constipation, weakness, numbness in her legs, no fever or chills. No known recent injury or heavy lifting. Did not take any medications prior to arrival. Pain is intermittent comes and goes only with movement. Related Data Home Medications Medication Instructions Recorded Confirmed multivitamin 1 tab PO DAILY 09/12/12 01/22/20 acetaminophen 1,000 mg PO Q8H PRN #90 tab 10/25/18 01/22/20 amoxicillin 500 mg capsule 2,000 mg PO ONCE #4 cap 01/21/19 01/22/20 triamcinolone acetonide 0.1 % 1 applic TP BID PRN #80 gm 02/06/19 01/22/20 topical cream aspirin 81 mg tablet,delayed 81 mg PO DAILY tab 04/29/19 01/22/20 release albuterol sulfate 90 mcg/actuation 1 - 2 puff INHALATION Q4H PRN #3 07/28/19 01/22/20 aerosol inhaler inhaler atorvastatin 10 mg tablet 10 mg PO HS #90 tab 07/28/19 01/22/20 escitalopram oxalate 10 mg tablet 10 mg PO HS #90 tab 07/28/19 01/22/20 fluticasone propionate 110 2 puff INHALATION BID #36 gm 07/28/19 01/22/20 mcg/actuation HFA aerosol inhaler losartan 50 mg tablet 50 mg PO DAILY #90 tab-cap 07/28/19 01/22/20 mirabegron 25 mg tablet,extended 25 mg PO DAILY #90 tab 07/28/19 01/22/20 release 24 hr zolpidem 5 mg tablet 5 mg PO HS PRN #60 tab-cap 10/14/19 01/22/20 Previous Rx's Medication Instructions Recorded acetaminophen 1,000 mg PO Q8H PRN #90 tab 10/25/18 amoxicillin 500 mg capsule 2,000 mg PO ONCE #4 cap 01/21/19 triamcinolone acetonide 0.1 % 1 applic TP BID PRN #80 gm 02/06/19 topical cream albuterol sulfate 90 mcg/actuation 1 - 2 puff INHALATION Q4H PRN #3 07/28/19 aerosol inhaler inhaler atorvastatin 10 mg tablet 10 mg PO HS #90 tab 07/28/19 escitalopram oxalate 10 mg tablet 10 mg PO HS #90 tab 07/28/19 fluticasone propionate 110 2 puff INHALATION BID #36 gm 07/28/19 mcg/actuation HFA aerosol inhaler losartan 50 mg tablet 50 mg PO DAILY #90 tab-cap 07/28/19 mirabegron 25 mg tablet,extended 25 mg PO DAILY #90 tab 07/28/19 release 24 hr zolpidem 5 mg tablet 5 mg PO HS PRN #60 tab-cap 10/14/19 Allergies Allergy/AdvReac Type Severity Reaction Status Date / Time No Known Allergies Allergy Verified 01/22/20 08:28 General Stated Complaint: FlankPain ELAINE: 3 Review of Systems <Diana Motta - Last Filed: 01/22/20 14:22> Narrative: Constitutional: Negative for weight loss, alert and oriented, well groomed, normal body habitus, appears comfortable. HEENT: Denies trauma, headaches, blurry vision, nasal discharge, sore throat, trouble swallowing. Chest: Denies chest pain, palpitations, irregular rhythm, hypertension. Respiratory: Denies Shortness of breath, cough, hemoptysis. GI: Denies abdominal pain, nausea, vomiting, diarrhea, constipation. : Denies dysuria, hematuria, positive right-sided flank pain with movement, no rectal bleeding. Neuro: Denies dizziness, blurry vision, weakness, syncope, headache or facial numbness. Hematologic: Denies easy bruising, intolerance to heat or cold, hair loss. PFS <Diana Motta - Last Filed: 01/22/20 14:22> Medical History Atypical chest pain (Resolved) h/o chest pressure; s/p workup which was neg. Benign paroxysmal positional vertigo (Resolved) Carpal tunnel syndrome (Resolved) 11/16/08 Chronic obstructive lung disease (Chronic 09/17/12) Contact dermatitis (Resolved) CVA (cerebral vascular accident) (Chronic 08/15/16) 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 Had no Cardiac problems. Pelvic floor dysfunction (Chronic 11/09/16) Plantar fasciitis (Resolved) Sleep disorder (Resolved 09/17/12) Smoker (Resolved) quit many years ago Tightness in chest (Resolved) 02/04/15 neg stress test Trigger finger, left index finger (Resolved) 01/07/16 Vertigo (Resolved) benign positional vertigo Surgical History Colonoscopy - IV Sedation (~01/2009) diverticula ECHO (~06/2007) EJECTION FRACTION 63% H/O reduction mammoplasty (Resolved) 06/11/06 History of bilateral tubal ligation (Resolved) 06/11/92 History of D&C (Acute) History of tonsillectomy (Chronic) History of total left knee replacement (TKR) (Chronic 10/24/18) DOS: 10/24/2018 Dr. Obando Ligation of fallopian tube (~1982) BILAT PART SALPINGEC Reduction mammoplasty (~09/2006) Family History Mother Heart disease CHF Smoker Father Heart disease [place] Colitis Stroke Sister Asthma Brother Prostate cancer Maternal Grandfather Lung cancer Paternal Grandfather Heart disease Stroke Maternal Grandmother Stomach cancer Paternal Grandmother Diabetes Heart disease Daughter Graves' disease Daughter No problems noted. Social History Smoking/Tobacco Use Status: Former Tobacco Use Quit Date: 06/11/88 Tobacco: How many years used: 30 Alcohol Intake: current Alcohol Intake frequency: a few times a month Alcohol type: wine Drug use: Never Substance use type: does not use Caregiver/Support person: Yes Household members: significant other Housing: house Communication Needs: None Do you need help understanding health information?: Never Pets and animals: Yes Pets and animals: dog(s) and bird(s) Sexually active: Yes Do you think of yourself as: straight/heterosexual Current gender identity: female What is your relationship status?: How often do you talk on the phone with friends or family?: twice per week How often do you get together with friends or relatives?: once per week How often do you attend anglican or confucianist services?: decline to answer Do you belong to any clubs or organized social groups?: no Panel score (0-1 are the most socially isolated patients): 2 What type of physical activity do you participate in: aerobic Duration: 15-30 minutes/day Frequency: decline to answer Nani/Protestant: None Special nani needs: No Seatbelt use: always Drive intox or ride w/intox hi low truck driver: No Do you feel safe at home: Yes Do you feel safe in your relationship?: Yes Exam <Diana Motta - Last Filed: 01/22/20 14:22> Narrative Exam Narrative: Constitutional: Alert and oriented x3. Appears stated age. Obese body habitus. Head: Normocephalic, no trauma. Eyes: Pupils PERRLA, Red reflex noted, EOM's intact. Eyelids symmetrical without lesions, discharge, or swelling. ENT: Bilateral TM's WNL, External ear normal to inspection, no mastoid TTP, swelling, or erythema, Nasal turbinates WNL, no nasal discharge. Normal dentition, Posterior pharynx WNL, no exudate. Chest: RRR, Normal S1, S2, distal pulses intact. Resp: Lungs clear to auscultation bilaterally, no wheezes, rales, or rhonchi. Abdomen: Soft, nondistended, nontender to palpation all 4 quadrants. Normoactive bowel sounds. Musculoskeletal: Normal gait, 5/5 strength to all four extremities. No midline C, T, L-spine tenderness no paraspinous tenderness elicited with palpation. Skin: No suspicious rashes or lesions. Capillary refill less than 2 sec. Neurologic: Cranial nerves II-XII intact. Alert and oriented x 3. DTR's intact. Hematologic/Lymphatic: No ecchymosis, no lymphadenopathy. Course <Diana Motta - Last Filed: 01/22/20 14:22> Vital Signs Vital signs: Vital Signs Temperature 36.5 C 01/22/20 08:23 Pulse 66 01/22/20 08:23 Respiratory Rate 18 01/22/20 08:23 Blood Pressure 163/89 H 01/22/20 08:23 Pulse Oximetry 97 01/22/20 08:23 Temperature 36.5 C 01/22/20 08:23 Temperature Source Temporal Artery Scan 01/22/20 08:23 Pulse 66 01/22/20 08:23 Respiratory Rate 18 01/22/20 08:23 Respiratory Effort Non-Labored 01/22/20 08:26 Blood Pressure 163/89 H 01/22/20 08:23 Blood Pressure Position Sitting 01/22/20 08:23 Pulse Oximetry 97 01/22/20 08:23 Oxygen Delivery Method Room Air 01/22/20 08:23 Oxygen Flow Rate 0 01/22/20 08:23 Pain Level 0 01/22/20 08:23
[2020-01-22 08:42] LABS: Bacteria Few HPF (Negative); C & S Indicated? No/Sq. Contamination; Casts Negative LPF (Negative); Crystals Negative HPF (Negative); Epithelial Cells Many HPF (Negative); Mucus Negative (Negative); RBC 0-2 HPF (0-2); WBC 20-50 HPF (0-5)
[2020-01-22 08:45] LABS: Abs Immature Grans 0.01 10^3/uL (0.0-0.06); Absolute Basophil Count 0.04 10^3/uL (0.0-0.2); Absolute Eosinophil Count 0.17 10^3/uL (0.0-0.7); Absolute Lymphocyte Count 1.44 10^3/uL (1.2-3.4); Absolute Monocyte Count 0.59 10^3/uL (0.1-0.8); Absolute Neutrophil Count 3.34 10^3/uL (1.2-6.7); Basophils % 0.7; HGB 13.5 g/dL (11.2-15.7); Immature Grans % 0.2; Lymphocytes % 25.8; MCH 30.3 pg (27.0-33.0); MCHC 32.1 % (32.0-36.0); MCV 94.4 fL (80-95); MPV 9.8 fL (8.0-11.0); Monocytes % 10.6; Neutrophils % 59.7; Nucleated RBC 0 %; Platelet Count 243 10^3/uL (130-400); RBC 4.45 10^6/uL (3.93-5.22); RDW 12.1 % (11.7-14.6); RDW-SD 42.3 fL; WBC 5.59 10^3/uL (4.4-10.8)
[2020-01-22 09:02] LABS: ALT 30 U/L (14-59); AST 21 U/L (15-37); Albumin 3.6 g/dL (3.4-5.0); Alkaline Phosphatase 95 U/L (46-116); Anion Gap 6.1 mmol/L (3-11); BUN 10 mg/dL (7-18); Bilirubin, Total 0.3 mg/dL (0.2-1.0); CO2 28.9 mmol/L (21.0-32.0); Calcium 8.9 mg/dL (8.5-10.1); Chloride 103 mmol/L (98-107); Glucose 104 mg/dL (74-106); Lipase 150 U/L (73-393); Sodium 138 mmol/L (136-145); Total Protein 7.4 g/dL (6.4-8.2)
--- NOTE | 2020-01-22 09:03 | DI.CT_ITS ---
EXAM: CT ABDOMEN PELVIS W CLINICAL HISTORY: Right flank pain TECHNIQUE: Imaging Protocol: Axial computed tomography images with coronal and sagittal reformatted images were created and reviewed CONTRAST MATERIAL: Intravenous: Omnipaque 350 Contrast volume:100 mL Oral: No COMPARISON: No exams were available for comparison FINDINGS: ABDOMEN: Lung Bases: Normal where visualized. Liver: Normal density. No measurable mass. Portal, Superior Mesenteric, and Splenic Veins: Unremarkable. Gallbladder and Biliary Tract: No radiodense calculus or dilation. Pancreas: Normal density, no abnormal calcifications or inflammatory process. Spleen: Normal. Adrenals: No masses seen. Kidneys: Normal size, contour and axis. No radiodense stones or obstructive uropathy. No masses seen. Note is made of a circum aortic left renal vein. Abdominal Aorta: Abdominal portion non-dilated. Mild atherosclerosis. Bowel: No obstruction or bowel wall thickening. Appendix is unremarkable. Small hiatal hernia. Peritoneal Cavity: No ascites, collection or mesenteric inflammatory response. Lymph Nodes: Within normal limits. Bones: Unremarkable. Soft Tissues: Unremarkable. PELVIS: Bladder: Symmetric distention, no gross wall thickening. Reproductive Organs: Unremarkable as visualized. Lymph Nodes: Within normal limits. Bones: Degenerative changes in the spine. IMPRESSION: No acute abdominal or pelvic process. Findings were discussed with the emergency department on the date of the examination. RADIATION DOSE DELIVERED: 1,164.8mGy.cm Total DLP DATA REPOSITORY: All CT scans at this facility are submitted to the National Radiology Data Registry (NRDR) Dose Index Registry (DIR) with the [employer] (ACR). RADIATION OPTIMIZATION: All CT scans at this facility use at least one of these dose optimization te chniques: automated exposure control; mA and/or kV adjustment per patient size (includes targeted exa ms where dose is matched to clinical indication); or iterative reconstruction.
[2020-01-22] MEDS: Omnipaque 350 MG/ML 100 ML BTL IV (09:32)
[2020-01-22 10:11] VITALS: BP 145/82; PULSE 56; RESP 14; TEMP 36.4; O2SAT 96
--- NOTE | 2020-01-22 10:15 | NUR.NOTE ---
Nursing Note: IV Removed wrapped/dressed with conban and gauze
[2020-01-22] MEDS: Ibuprofen 600 MG TAB PO (10:34)
[2020-01-22] MEDS: Cyclobenzaprine 10 MG TAB PO (10:34)
[2020-01-22] MEDS: Cyclobenzaprine 10 MG TAB, 3 TABS/BTL PO (10:34)
== END 2020-01-22 10:21 | disposition home or self-care (01) ==
PROVIDERS: Emergency Provider Registered Nurse Emergency; PCP Family Medicine
DX: M54.5 Low back pain (principal); R10.11 Right upper quadrant pain; I10 Essential (primary) hypertension; J44.9 Chronic obstructive pulmonary disease, unspecified; Z87.891 Personal history of nicotine dependence
CPT/HCPCS: 36415; 80053; 83690; 99285; 74177; 81003; 81015; 85025; 99284; J3490

== ENCOUNTER 2020-04-26 02:10 | Outpatient (CLI) | payer MEDICARE, OTHER, SELFPAY ==
[2020-04-26 08:05] LABS: Hemoglobin A1C 5.7 % (<5.7)
[2020-04-26 08:35] LABS: ALT 27 U/L (14-59); AST 18 U/L (15-37); Albumin 3.7 g/dL (3.4-5.0); Alkaline Phosphatase 90 U/L (46-116); Anion Gap 7.5 mmol/L (3-11); BUN 12 mg/dL (7-18); Bilirubin, Total 0.3 mg/dL (0.2-1.0); CO2 28.5 mmol/L (21.0-32.0); CREATININE 0.98 mg/dL (0.55-1.02); Calculated LDL 73 mg/dL (<100); Chloride 106 mmol/L (98-107); Cholesterol 164 mg/dL (<200); Estimated GFR 55.48 (mL/min/1.73m2); Glucose 93 mg/dL (74-106); HDL Cholesterol 49 mg/dL (40-60); Potassium 4.3 mmol/L (3.5-5.1); Sodium 142 mmol/L (136-145); Total Protein 6.8 g/dL (6.4-8.2); Triglyceride 213 mg/dL (<150)
== END 2020-04-26 02:30 ==
PROVIDERS: PCP Family Medicine; Visit Provider Family Medicine
DX: E78.5 Hyperlipidemia, unspecified (principal); I10 Essential (primary) hypertension; E11.9 Type 2 diabetes mellitus without complications
CPT/HCPCS: 36415; 80053; 80061; 83036

== ENCOUNTER 2020-05-07 02:03 | Outpatient (CLI) | payer MEDICARE, OTHER, SELFPAY ==
--- NOTE | 2020-05-07 07:45 | DI.MAMMO_ITS ---
EXAM: MG MAMMO SCREENING CLINICAL HISTORY: screening, Z12.39 TECHNIQUE: Mammograms were interpreted according to the usual protocol including computer analysis w [employer] system, tomosynthesis and C-view imaging. COMPARISON: FINDINGS: The breasts are of moderate density with fairly symmetrical distribution of fibroglandular tissue. N o dominant mass or clumped microcalcification is identified in either breast. The current examinatio n is compared with previous examinations including March 2019 and there has been no gross interval change in appearance in comparison with the prior studies. IMPRESSION: No specific evidence of malignancy at this time. Routine screening examinations are suggested at yea rly intervals in this age group according to the ACS ACR guidelines. BI-RADS Category 1 - Negative Breast Density - Category B - Scattered areas of fibroglandular density
== END 2020-05-07 02:23 ==
PROVIDERS: PCP Family Medicine; Visit Provider Family Medicine
DX: Z12.31 Encounter for screening mammogram for malignant neoplasm of breast (principal)
CPT/HCPCS: 77063; 77067

== ENCOUNTER 2020-10-15 03:35 | Outpatient (CLI) | payer MEDICARE, OTHER, SELFPAY | END 2020-10-15 03:36 | disposition home or self-care (01) | PROVIDERS: PCP Family Medicine; Visit Provider Family Medicine | DX: I10 Essential (primary) hypertension (principal) | CPT/HCPCS: 36415; 84443 ==

== ENCOUNTER 2020-11-20 18:28 | Outpatient (REF) | payer MEDICARE, OTHER, SELFPAY ==
[2020-11-20 14:55] LABS: Bilirubin Negative (Negative); Blood Large (Negative); Clarity Cloudy (Clear); Glucose Negative (Negative); Ketones Negative (Negative); Leukocyte Esterase Large (Negative); Nitrite Negative (Negative); Specific Gravity 1.025 (1.005-1.025); Urobilinogen 0.2 EU/dL (Up TO 0.2)
[2020-11-20 15:02] LABS: RBC >50 HPF (0-2); WBC >50 HPF (0-5)
[2020-11-20 15:03] LABS: C & S Indicated? C&S Done As Ordered
== END 2020-11-20 18:29 | disposition home or self-care (01) ==
LOC: LBN 18:28
PROVIDERS: PCP Family Medicine; Visit Provider Nurse Practitioner Family
DX: N39.0 Urinary tract infection, site not specified (principal)
CPT/HCPCS: 81003; 81015; 87086

== ENCOUNTER 2020-11-29 12:38 | Outpatient (REF) | payer MEDICARE, OTHER, SELFPAY ==
[2020-11-29 13:54] LABS: Bilirubin Negative (Negative); Blood Negative (Negative); Clarity Clear (Clear); Glucose Negative (Negative); Ketones Negative (Negative); Leukocyte Esterase Negative (Negative); Nitrite Negative (Negative); Specific Gravity 1.025 (1.005-1.025); Urobilinogen 0.2 EU/dL (Up TO 0.2)
== END 2020-11-29 12:39 | disposition home or self-care (01) ==
LOC: NCHCN 12:38
PROVIDERS: PCP Family Medicine; Visit Provider Family Medicine
DX: R31.9 Hematuria, unspecified (principal)
CPT/HCPCS: 81003

== ENCOUNTER 2021-01-17 18:51 | Outpatient (REF) | payer MEDICARE, OTHER, SELFPAY ==
[2021-01-17 21:34] LABS: Bilirubin Negative (Negative); Blood Negative (Negative); Clarity Cloudy (Clear); Glucose Negative (Negative); Ketones Negative (Negative); Leukocyte Esterase Small (Negative); Nitrite Negative (Negative); Specific Gravity 1.025 (1.005-1.025); Urobilinogen 0.2 EU/dL (Up TO 0.2); pH 5.5 (5-8)
[2021-01-17 21:54] LABS: Bacteria Moderate HPF (Negative); C & S Indicated? C&S Done As Ordered; Casts Negative LPF (Negative); Crystals Negative HPF (Negative); Epithelial Cells Many HPF (Negative); Mucus Moderate (Negative); WBC 20-50 HPF (0-5)
== END 2021-01-17 18:52 | disposition home or self-care (01) ==
LOC: NCHCN 18:51
PROVIDERS: PCP Family Medicine; Visit Provider Nurse Practitioner Family
DX: N39.0 Urinary tract infection, site not specified (principal)
CPT/HCPCS: 87077; 81003; 81015; 87086; 87186

== ENCOUNTER 2021-01-31 20:38 | Outpatient (REF) | payer MEDICARE, OTHER, SELFPAY ==
[2021-01-31 21:17] LABS: Bilirubin Negative (Negative); Blood Large (Negative); Clarity Sl Cloudy (Clear); Glucose Negative (Negative); Ketones Negative (Negative); Leukocyte Esterase Trace (Negative); Nitrite Negative (Negative); Specific Gravity 1.025 (1.005-1.025); Urobilinogen 0.2 EU/dL (Up TO 0.2); pH 6.5 (5-8)
[2021-01-31 21:24] LABS: Bacteria Moderate HPF (Negative); C & S Indicated? Yes; Casts Negative LPF (Negative); Crystals Negative HPF (Negative); Epithelial Cells Few HPF (Negative); Mucus Negative (Negative); RBC 20-50 HPF (0-2)
[2021-02-02 16:20] LABS: COVID-19 RT-PCR UVMMC Result Negative (Negative)
== END 2021-01-31 20:39 | disposition home or self-care (01) ==
LOC: LBN 20:38
PROVIDERS: PCP Family Medicine; Visit Provider Nurse Practitioner Family
DX: R31.9 Hematuria, unspecified (principal); N39.0 Urinary tract infection, site not specified; Z20.822 Contact with and (suspected) exposure to COVID-19
CPT/HCPCS: U0003; 81003; 81015; 87086

== ENCOUNTER 2021-02-17 01:26 | Outpatient (CLI) | payer MEDICARE, OTHER, SELFPAY ==
--- NOTE | 2021-02-17 08:30 | DI.US_ITS ---
Exam(s) US RENAL EXAM: US RENAL CLINICAL HISTORY: r/o renal stones,HEMATURIA,RECURRENT UTI,N39.0,R31.9 TECHNIQUE: Ultrasound of both kidneys performed using standard protocol. COMPARISON: No exams were available for comparison FINDINGS: RIGHT KIDNEY: Measures 11.6 cm in length. No cysts evident. Normal cortical thickness and corticomedullary differen tiation .No solid masses Tiny hyperechoic focus noted in the inferior pole which is probably a nonobstructive calculus measuri ng 3-4 millimeter LEFT KIDNEY: Measures 11.9 cm in length. No cysts evident. Normal cortical thickness and corticomedullary differe ntiaion. No solids masses. No intrarenal calculi nor hydonephrosis. URINARY BLADDER: Empty and therefore not able to be studied IMPRESSION: 1. There is a nonobstructive 3-4 millimeter calculus in lower pole of the right kidney. No other fo meir renal findings. No hydronephrosis. 2. Bladder was empty and therefore not studied. DATA REPOSITORY:
== END 2021-02-17 01:46 ==
PROVIDERS: PCP Family Medicine; Visit Provider Nurse Practitioner Family
DX: N39.0 Urinary tract infection, site not specified (principal); R31.9 Hematuria, unspecified; N20.0 Calculus of kidney
CPT/HCPCS: 76770

== ENCOUNTER → 2021-02-21 10:47 | Outpatient (BNVA) | payer MEDICARE, OTHER, SELFPAY | PROVIDERS: PCP Family Medicine; Referring Provider Family Medicine; Visit Provider Nurse Practitioner Gerontology | DX: N39.46 Mixed incontinence (principal); R31.29 Other microscopic hematuria; Z87.440 Personal history of urinary (tract) infections | CPT/HCPCS: 81003; 99215 ==

== ENCOUNTER 2021-03-14 17:43 | Outpatient (REF) | payer MEDICARE, OTHER, SELFPAY ==
[2021-03-14 16:18] LABS: Bilirubin Negative (Negative); Blood Moderate (Negative); Clarity Cloudy (Clear); Glucose Negative (Negative); Ketones Negative (Negative); Leukocyte Esterase Large (Negative); Nitrite Negative (Negative); Specific Gravity 1.025 (1.005-1.025); Urobilinogen 0.2 EU/dL (Up TO 0.2); pH 6.5 (5-8)
[2021-03-14 16:29] LABS: Bacteria Many HPF (Negative); C & S Indicated? Yes; Casts Negative LPF (Negative); Crystals Negative HPF (Negative); Epithelial Cells Few HPF (Negative); Mucus Trace (Negative); WBC >50 HPF (0-5)
== END 2021-03-14 17:44 | disposition home or self-care (01) ==
LOC: LBN 17:43
PROVIDERS: PCP Family Medicine; Visit Provider Nurse Practitioner Family
DX: R30.0 Dysuria (principal); R31.9 Hematuria, unspecified
CPT/HCPCS: 87077; 81003; 81015; 87086; 87186

== ENCOUNTER → 2021-05-04 08:23 | Outpatient (BNVA) | payer MEDICARE, OTHER, SELFPAY | PROVIDERS: PCP Family Medicine; Referring Provider Family Medicine; Visit Provider Nurse Practitioner Gerontology | DX: R31.29 Other microscopic hematuria (principal); N39.46 Mixed incontinence; Z87.440 Personal history of urinary (tract) infections; Z79.899 Other long term (current) drug therapy | CPT/HCPCS: 81003; 99214 ==

== ENCOUNTER 2021-05-09 00:08 | Outpatient (CLI) | payer MEDICARE, OTHER, SELFPAY ==
--- NOTE | 2021-05-09 06:15 | DI.MAMMO_ITS ---
Exam(s) MAMMO SCREENING EXAM: MAMMO SCREENING CLINICAL HISTORY: screening,z12.39. TECHNIQUE: Bilateral full field digital CC and MLO mammographic images were obtained with 3D tomosyn thesis and utilizing computer aided detection (CAD). COMPARISON: Prior mammograms dating back to 2012, the most recent being April 2020. FINDINGS: There are no new spiculated masses nor malignant appearing microcalcification groups. There is no significant architectural distortion nor skin thickening-retraction. IMPRESSION: No radiographic evidence of malignancy. BI-RADS Category 1 - Negative Breast Density - Category B - Scattered areas of fibroglandular density Breast density Category C or D implies that the patient has dense breast tissue. Dense breast tissue can make it harder to find cancer on a mammogram. Dense breast tissue is also associated with an incr eased risk of breast cancer. This information about the result of the mammogram report was provided to the patient to raise their awareness. Use this report when you speak with the patient about their risks for breast cancer, which includes their family history. At that time, you may recommend additional screening tests (Ultrasoun d or MRI) as these tests may add significant information. A negative radiographic report should not delay biopsy if a dominant or clinically suspicious mass is present. Up to ten percent of cancers are not identified on mammography. A negative report may reinforce clinical impression. Adenosis and dense breasts may obscure an underlying neoplasm. False positive reports average 6 to 10%. Patient will receive a letter notifying them of these results.
== END 2021-05-09 00:28 ==
PROVIDERS: PCP Family Medicine; Visit Provider Family Medicine
DX: Z12.31 Encounter for screening mammogram for malignant neoplasm of breast (principal)
CPT/HCPCS: 77063; 77067

== ENCOUNTER 2021-10-17 01:35 | Outpatient (CLI) | payer MEDICARE, SELFPAY ==
[2021-10-17 07:41] LABS: Hemoglobin A1C 5.8 % (<5.7)
[2021-10-17 08:12] LABS: COMMENT (LAB VIEW ONLY) 220.83 mg/dL; Microalb ug/mg Crea 7.4 ug/mg Cr
[2021-10-17 08:18] LABS: ALT 32 U/L (14-59); AST 23 U/L (15-37); Albumin 3.7 g/dL (3.4-5.0); Alkaline Phosphatase 92 U/L (46-116); Anion Gap 5.9 mmol/L (3-11); BUN 12 mg/dL (7-18); Bilirubin, Total 0.5 mg/dL (0.2-1.0); CO2 31.1 mmol/L (21.0-32.0); CREATININE 0.9 mg/dL (0.55-1.02); Calcium 9.1 mg/dL (8.5-10.1); Chloride 105 mmol/L (98-107); Glucose 102 mg/dL (74-106); Potassium 3.9 mmol/L (3.5-5.1); Sodium 142 mmol/L (136-145)
[2021-10-17 08:40] LABS: Calculated LDL 79 mg/dL (<100); Cholesterol 168 mg/dL (<200); HDL Cholesterol 54 mg/dL (40-60); Triglyceride 176 mg/dL (<150)
== END 2021-10-17 01:36 | disposition home or self-care (01) ==
LOC: LBO 01:35
PROVIDERS: PCP Family Medicine; Visit Provider Family Medicine
DX: E78.5 Hyperlipidemia, unspecified (principal); I10 Essential (primary) hypertension; E11.9 Type 2 diabetes mellitus without complications
CPT/HCPCS: 36415; 80053; 80061; 82043; 82570; 83036

== ENCOUNTER → 2021-11-22 14:54 | Outpatient (BNVA) | payer MEDICARE, SELFPAY | PROVIDERS: PCP Family Medicine; Referring Provider Family Medicine; Visit Provider Nurse Practitioner Gerontology | DX: N39.46 Mixed incontinence (principal); R30.0 Dysuria | CPT/HCPCS: 51798; 81003; 99214 ==

== ENCOUNTER 2021-12-27 19:13 | Outpatient (REF) | payer MEDICARE, SELFPAY ==
[2021-12-27 14:41] LABS: Source Nasal/Nares
[2021-12-28 00:17] LABS: COVID-19 PCR Negative (Negative)
== END 2021-12-27 19:14 | disposition home or self-care (01) ==
LOC: LBN 19:13
PROVIDERS: PCP Family Medicine; Visit Provider Urology
DX: Z20.822 Contact with and (suspected) exposure to COVID-19 (principal); Z01.818 Encounter for other preprocedural examination
CPT/HCPCS: 87635

== ENCOUNTER 2021-12-29 06:15 | Day surgery (SDC) | payer MEDICARE, SELFPAY ==
[2021-12-29 06:15] VITALS: BP 148/82; PULSE 73; RESP 18; TEMP 36.5; O2SAT 96
--- NOTE | 2021-12-29 06:44 | W.PM.HP.N ---
Date of service: 12/29/21 Time of Service: 06:44 Assessment and Plan Assessment and plan (1) Mixed stress and urge urinary incontinence: Status: Acute Assessment and plan: We will move ahead with a cystoscopy and transurethral injection of a bulking agent for the intrinsic sphincter deficiency portion of her incontinence History of Present Illness History of Present Illness Chief Complaint: Mixed urinary incontinence Narrative: This is a 76 year old woman who has a history of mixed urinary incontinence. She has been on Myrbetriq for the urgency portion of her incontinence. Ms. Zuñiga however has had a recent respiratory illness.? During her time of her respiratory illness and her coughing her stress incontinence worsened.? She notes that she is having worsening stress incontinence. ? She feels that she can empty out completely, but her PVR was low.? She does go frequently throughout the day.? She denies dysuria, gross hematuria, suprapubic discomfort or flank pain. She would like to discuss surgical intervention options for her stress incontinence.? She does state that she is on pelvic floor physical therapy in the past and does not have any benefit from continuing to do it. Review of Systems Narrative: No fevers or chills No vision change or dysphasia No diabetes or thyroid Hx COPD. No hemoptysis No chest pain or palpitations No nausea, vomiting, hepatitis, ulcers or jaundice Hx stroke. No seizures or peripheral neuropathy No bleeding disorders or anemia No gout PFSH All Active Problems Mixed stress and urge urinary incontinence (Acute) Eczema (Acute) BMI 38.0-38.9,adult (Acute) Essential hypertension (Acute) Pelvic floor dysfunction (Chronic 11/09/16) Hyperlipidemia (Chronic) Depressive disorder (Chronic) Chronic obstructive lung disease (Chronic 09/17/12) CVA (cerebral vascular accident) (Chronic 08/15/16) [facility] Medical History Atypical chest pain h/o chest pressure; s/p workup which was neg. Benign paroxysmal positional vertigo Carpal tunnel syndrome 11/16/08 Contact dermatitis Derangement of medial meniscus of left knee (12/24/17) Diverticulosis of colon without diverticulitis (01/08/09) Eczema Elevated blood pressure reading Essential hypertension 03/13/13 Fibrocystic breast disease Functional gait abnormality (11/09/16) H/O echocardiogram 06/11/07 EF 63% Left knee DJD S/P left TKA Neck pain Palpitations in the past; underwent Holter and MPI. Had no Cardiac problems. Plantar fasciitis Sleep disorder (09/17/12) Smoker quit many years ago Tightness in chest 02/04/15 neg stress test Trigger finger, left index finger 01/07/16 Vertigo benign positional vertigo Surgical History Colonoscopy - IV Sedation (~01/2009) diverticula ECHO (~06/2007) EJECTION FRACTION 63% H/O reduction mammoplasty 06/11/06 History of bilateral tubal ligation 06/11/92 History of D&C History of tonsillectomy History of total left knee replacement (TKR) (10/24/18) DOS: 10/24/2018 Dr. Obando Ligation of fallopian tube (~1982) BILAT PART SALPINGEC Reduction mammoplasty (~09/2006) Family History Mother Heart disease CHF Smoker Father Heart disease [place] Colitis Stroke Sister Asthma Brother Prostate cancer Maternal Grandfather Lung cancer Paternal Grandfather Heart disease Stroke Maternal Grandmother Stomach cancer Paternal Grandmother Diabetes Heart disease Daughter Graves' disease Daughter No problems noted. Social History Smoking/Tobacco Use Status: Former Tobacco Use tobacco type: cigarettes Quit Date: 06/11/88 Tobacco: How many years used: 30 Second Hand Exposure: Yes Smoking risk assessment performed?: Yes Alcohol Intake: current Alcohol Intake frequency: a few times a month Alcohol type: beer, wine and hard liquor Drug use: Never Substance use type: does not use Caregiver/Support person: Yes Household members: significant other Housing: house Communication Needs: None Do you need help understanding health information?: Never Pets and animals: Yes Pets and animals: dog(s) and bird(s) Sexually active: Yes Do you think of yourself as: straight/heterosexual Current gender identity: female What is your relationship status?: How often do you talk on the phone with friends or family?: three or more times per week How often do you get together with friends or relatives?: once per week How often do you attend adventism or mosque services?: decline to answer Do you belong to any clubs or organized social groups?: no Panel score (0-1 are the most socially isolated patients): 2 What type of physical activity do you participate in: walking and aerobic Duration: 15-30 minutes/day Frequency: decline to answer Nani/Faith: None Special nani needs: No Seatbelt use: always Drive intox or ride w/intox class a regional drivers: No Do you feel safe at home: Yes Do you feel safe in your relationship?: Yes Meds Allergies and Home Medications Allergies Allergy/AdvReac Type Severity Reaction Status Date / Time No Known Allergies Allergy Verified 12/29/21 06:09 Home Medications Medication Instructions Recorded Confirmed Type multivitamin 1 tab PO DAILY 09/12/12 12/29/21 History acetaminophen 500 mg tablet 1,000 mg PO Q8H PRN pain #90 tabs 10/25/18 12/29/21 Rx aspirin 81 mg tablet,delayed 81 mg PO DAILY 04/29/19 12/28/21 History release albuterol sulfate 90 mcg/actuation 1 - 2 puff inhalation Q4H PRN ##3 07/28/19 12/29/21 Rx aerosol inhaler (ProAir HFA) fluticasone propionate 110 2 puff inhalation BID #36 grams 04/27/20 12/29/21 Rx mcg/actuation HFA aerosol inhaler (Flovent HFA) estradiol 0.01% (0.1 mg/gram) 1 g vaginal DAILY #42.5 grams 01/31/21 12/28/21 Rx vaginal cream (Estrace) estradiol 10 mcg vaginal tablet 10 mcg vaginal .3 times weekly #36 04/28/21 12/28/21 Rx (Yuvafem) tabs zolpidem 5 mg tablet 5 mg PO HS PRN insomnia #60 04/28/21 12/28/21 Rx tab-caps atorvastatin 10 mg tablet 10 mg PO HS #90 tabs 06/17/21 12/29/21 Rx escitalopram oxalate 10 mg tablet 10 mg PO HS #90 tabs 06/17/21 12/29/21 Rx (Lexapro) losartan 50 mg tablet 50 mg PO DAILY #90 tab-caps 06/17/21 12/29/21 Rx mirabegron 50 mg tablet,extended 50 mg PO DAILY #90 tabs 06/17/21 12/29/21 Rx release 24 hr triamcinolone acetonide 0.1 % 1 applic topical BID PRN redness 08/11/21 12/28/21 Rx topical cream #80 grams benzonatate 100 mg capsule 100 mg PO TID PRN cough #14 caps 11/14/21 12/28/21 Rx (Jeri Moreno) Exam Const General: cooperative Nutritional Appearance: overweight Neck Neck: supple Resp Effort & Inspection: normal respiratory effort Auscultation: clear to auscultation bilaterally Cardio Rate: regular rate Rhythm: regular rhythm GI Palpation: soft and no masses Neuro General: patient alert, patient awake and patient oriented x3 Results Last Vital Signs Temp 36.5 C 12/29/21 06:15 Pulse 73 12/29/21 06:15 Resp 18 12/29/21 06:15 BP 148/82 H 12/29/21 06:15 Pulse Ox 96 12/29/21 06:15
[2021-12-29] MEDS: Lactated Ringers 1,000 ML 80 ML IV (06:46)
--- NOTE | 2021-12-29 06:58 | W.ANESPRE ---
General Info Date of Service Date Performed: 12/29/21 Height: 5 ft 5 in Weight: 108 kg Body Mass Index (BMI): 39.6 Surgical Procedure: Operation Date: 12/29/21 07:40 Proposed Procedure Side Surgeon p Cystoscopy/Coaptite Injection Noe Singh MD Meds Allergies and Home Medications Allergies Allergy/AdvReac Type Severity Reaction Status Date / Time No Known Allergies Allergy Verified 12/29/21 06:09 Home Medication Medication Instructions Recorded multivitamin 1 tab PO DAILY 09/12/12 acetaminophen 500 mg tablet 1,000 mg PO Q8H PRN pain #90 tabs 10/25/18 aspirin 81 mg tablet,delayed 81 mg PO DAILY 04/29/19 release albuterol sulfate 90 mcg/actuation 1 - 2 puff inhalation Q4H PRN ##3 07/28/19 aerosol inhaler (ProAir HFA) fluticasone propionate 110 2 puff inhalation BID #36 grams 04/27/20 mcg/actuation HFA aerosol inhaler (Flovent HFA) estradiol 0.01% (0.1 mg/gram) 1 g vaginal DAILY #42.5 grams 01/31/21 vaginal cream (Estrace) estradiol 10 mcg vaginal tablet 10 mcg vaginal .3 times weekly #36 04/28/21 (Yuvafem) tabs zolpidem 5 mg tablet 5 mg PO HS PRN insomnia #60 04/28/21 tab-caps atorvastatin 10 mg tablet 10 mg PO HS #90 tabs 06/17/21 escitalopram oxalate 10 mg tablet 10 mg PO HS #90 tabs 06/17/21 (Lexapro) losartan 50 mg tablet 50 mg PO DAILY #90 tab-caps 06/17/21 mirabegron 50 mg tablet,extended 50 mg PO DAILY #90 tabs 06/17/21 release 24 hr triamcinolone acetonide 0.1 % 1 applic topical BID PRN redness 08/11/21 topical cream #80 grams benzonatate 100 mg capsule 100 mg PO TID PRN cough #14 caps 11/14/21 (Jeri Moreno) Current Visit Medications: Current Medications Generic Name Dose Route Start Last Admin Trade Name Freq PRN Reason Stop Dose Admin Ringer's Solution 1,000 mls @ 80 mls/hr 12/29/21 06:00 12/29/21 06:46 IV 01/27/22 23:59 80 mls/hr INFUSION CHRISTIN Administration Cefazolin Sodium 2,000 mg/ 100 mls @ 200 mls/hr 12/29/21 06:00 Sodium Chloride IVPB 12/29/21 18:00 PREOP CHRISTIN IV Miscellaneous Supplies 1 each 12/29/21 06:00 Iv Access IV 01/27/22 23:59 DIRECTED CHRISTIN Sodium Chloride 0 ml 12/29/21 06:00 Normal Saline Flush 10 Ml Syr IV 01/27/22 23:59 PRN PRN Sodium Chloride 0 ml 12/29/21 06:00 Normal Saline 10 Ml Vial IJ 01/27/22 23:59 DIRECTED PRN Sterile Water 0 ml 12/29/21 06:00 Water,Injection,Sterile 10 Ml Vial IJ 01/27/22 23:59 DIRECTED PRN PFSH Active Problems Active Problems: Problem Status Onset Code Mixed stress and urge urinary incontinence N39.46 Eczema L30.9 BMI 38.0-38.9,adult Z68.38 Essential hypertension I10 Pelvic floor dysfunction 11/09/16 M62.89 Hyperlipidemia E78.5 Depressive disorder F32.9 Chronic obstructive lung disease 09/17/12 J44.9 CVA (cerebral vascular accident) 08/15/16 I63.9 Medical History Medical History Atypical chest pain h/o chest pressure; s/p workup which was neg. Benign paroxysmal positional vertigo Carpal tunnel syndrome 11/16/08 Contact dermatitis Derangement of medial meniscus of left knee (12/24/17) Diverticulosis of colon without diverticulitis (01/08/09) Eczema Elevated blood pressure reading Essential hypertension 03/13/13 Fibrocystic breast disease Functional gait abnormality (11/09/16) H/O echocardiogram 06/11/07 EF 63% Left knee DJD S/P left TKA Neck pain Palpitations in the past; underwent Holter and MPI. Had no Cardiac problems. Plantar fasciitis Sleep disorder (09/17/12) Smoker quit many years ago Tightness in chest 02/04/15 neg stress test Trigger finger, left index finger 01/07/16 Vertigo benign positional vertigo Surgical History Surgical History Colonoscopy - IV Sedation (~01/2009) diverticula ECHO (~06/2007) EJECTION FRACTION 63% H/O reduction mammoplasty 06/11/06 History of bilateral tubal ligation 06/11/92 History of D&C History of tonsillectomy History of total left knee replacement (TKR) (10/24/18) DOS: 10/24/2018 Dr. Obando Ligation of fallopian tube (~1982) BILAT PART SALPINGEC Reduction mammoplasty (~09/2006) Tobacco Smoking/Tobacco Use Status: Former Tobacco Use Passive smoking exposure: Yes Second hand exposure: Yes Alcohol Alcohol Intake: current Alcohol intake frequency: a few times a month Alcohol type: beer, wine and hard liquor Substance Use Substance use: Never Substance use type: does not use Vital Signs and Lab Results Vital Signs Most Recent Vital Signs in EMR: Most Recent Vital Signs Temp Pulse Resp BP Pulse Ox 36.5 C 73 18 148/82 H 96 12/29/21 06:15 12/29/21 06:15 12/29/21 06:15 12/29/21 06:15 12/29/21 06:15 Lab Results Blood Type / Crossmatch: No Data to Display Complete Blood Count: No Data to Display Complete Metabolic Panel: No Data to Display Liver Function Panel: No Data to Display Coagulation Panel: No Data to Display Cardiac Panel: No Data to Display Arterial Blood Gas: No Data to Display Venous Blood Gas: No Data to Display Pancreas Panel: No Data to Display Thyroid Panel: No Data to Display Infectious Disease: Coronavirus (COVID-19)(PCR) Negative (Negative) 12/27/21 09:30 Coronavirus 2019 Source Nasal/Nares 12/27/21 09:30 Blood Cultures: No Data to Display Toxicology Panel: No Data to Display Imaging and Studies Imaging and Studies Study information below may be from another EMR and interpreted by another provider. Please see original notes in EMR for more complete details. Stress Test Summary: Date of study: 01/28/2015 *PATIENT PRESENTATION* Height: 162.6cm (64in ) Blood Pressure: Weight: 111.4kg (245lb ) BSA: 2.3m^2 Impressions: Normal study after maximal exercise. Anesthesia Assessment and Plan Anesthesia History Personal History: No History of Anesthesia Complications Family History: No Family History of Anesthesia Complications Exercise Tolerance Exercise Tolerance: Metabolic Equivalents>4 Pertinent Negatives Pertinent Negatives: No Symptoms of GERD Cardiac & Pulmonary Exam Cardiac Exam: Normal S1/S2 Heart Sounds Pulmonary Exam: Clear Bilateral Breath Sounds Implantable Cardiac Device Does patient have a Pacemaker or an ICD?: No Airway Exam Known Difficult Airway: No Mallampati Class: 2 Mouth Opening: Normal (> 3cm) Thyromental Distance: Greater than 3 cm Neck Range of Motion: Full ROM Neck Circumference: Normal Teeth Condition: Normal Dentition ASA Classification ASA Score: ASA 3 Emergency Case?: No NPO Status NPO Status: NPO Clears >2 hours, Solids >8 hours Anesthesia Plan Resuscitation Status: Full Code Anesthesia Technique: General Anesthesia Airway Planned: Natural Airway Monitors Used: Standard Monitors
[2021-12-29 07:02] VITALS: BMI 39.6
[2021-12-29] MEDS: ceFAZolin 2,000 MG in Normal Saline 100 ML 200 MG IVPB (07:23)
[2021-12-29] MEDS: Lidocaine 2% Jelly 6 ML SYR (07:41)
--- NOTE | 2021-12-29 07:46 | W.PM.DSUDISC ---
Discharge Plan Disposition Patient Disposition: HOME Condition: Good Discharge Details Reason For Visit: incontinence Attending Provider: Noe Singh Primary Care Provider: Yue Hoffmann Home Meds and New Rx's Prescriptions: No Action aspirin 81 mg tablet,delayed release (DR/EC) 81 mg PO DAILY triamcinolone acetonide 0.1 % cream 1 applic TP BID PRN (Reason: redness) Qty: 80 1RF Rx Instructions: apply to arms fluticasone propionate [Flovent HFA] 110 mcg/actuation HFA aerosol inhaler 2 puff Inhalation BID Qty: 36 5RF estradiol [Yuvafem] 10 mcg tablet 10 mcg vaginal .3 times weekly Qty: 36 4RF zolpidem 5 mg tablet 5 mg PO HS PRN (Reason: insomnia) Qty: 60 0RF estradiol [Estrace] 0.01 % (0.1 mg/gram) cream 1 g vaginal DAILY Qty: 42.5 3RF Rx Instructions: Insert 1 gm daily x 2 weeks then reduce dose to 2x weekly benzonatate [Tessalon Perles] 100 mg capsule 100 mg PO TID PRN (Reason: cough) Qty: 14 0RF multivitamin 1 EACH tablet 1 tab PO DAILY albuterol sulfate [ProAir HFA] 90 mcg/actuation HFA aerosol inhaler 1 - 2 puff Inhalation Q4H PRN Qty: 3 12RF atorvastatin 10 mg tablet 10 mg PO HS Qty: 90 4RF escitalopram oxalate [Lexapro] 10 mg tablet 10 mg PO HS Qty: 90 5RF losartan 50 mg tablet 50 mg PO DAILY Qty: 90 11RF mirabegron 50 mg tablet extended release 24 hr 50 mg PO DAILY Qty: 90 4RF acetaminophen 500 mg tablet 1,000 mg PO Q8H PRN (Reason: pain) Qty: 90 3RF Discharge Instructions Additional Instructions: no appointment needed but have pt call in @ 1 week with a progress report Activity:: Activity as Tolerated Diet:: As Tolerated Discharge Orders Discharge Orders: Discharge Order (Routine); Ordered 12/29/21 Ordered By: Noe Singh DS: Diagnosis Discharge Diagnosis (1) Mixed stress and urge urinary incontinence: Status: Acute
--- NOTE | 2021-12-29 07:49 | ROE_ITS ---
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 She has been on Myrbetriq for the urgency portion of her incontinence. She recently had an upper respiratory infection and she noticed worsening incontinence when she would cough or sneeze. The symptoms progressed to where she has incontinence with minimal activity. She presents now for an injection of a bulking agent at the bladder neck Findings: Normal bladder Procedure Description: The patient was given a dose of preoperative IV antibiotics. She was brought to the operating room on 12/29/2021. After successful induction of general anesthesia without intubation, she was placed in the dorsal lithotomy position. Her genitalia was prepped and draped. 2% Xylocaine jelly was instilled into the urethra to act as a local anesthetic. A 20 Palestinian urethrotome sheath was passed through the urethra into the bladder. The bladder neck and bladder were inspected with the 12 degree lens. The bladder neck appeared open at rest. Both ureteral orifices appeared normal with no blood seen coming from either side. The remainder the bladder was smooth-walled with no papillary or nodular lesions. Using a transurethral injection system, we injected 1 vial of coapt tight submucosally at the bladder neck. This resulted in good coaptation of the bladder neck mucosa when it was viewed cystoscopically. The scope was removed and the bladder was drained with a 14 Palestinian red rubber catheter. The catheter was removed. The patient tolerated the procedure well with no complications. She was taken back to the day surgery unit in stable condition.
[2021-12-29 07:55] VITALS: BP 94/63; PULSE 66; RESP 16; TEMP 36.2; O2SAT 95
--- NOTE | 2021-12-29 08:21 | W.ANESPOSTOP ---
Postoperative Evaluation Date, Time and Location Date Performed: 12/29/21 Time Performed: 08:21 Patient Location: Day Surgery Unit Vital Signs Most Recent Imported Vital Signs: Most Recent Vital Signs Temp Pulse Resp BP Pulse Ox 36.2 C L 66 16 94/63 L 95 12/29/21 07:55 12/29/21 07:55 12/29/21 07:55 12/29/21 07:55 12/29/21 07:55 Pain Score Most Recent Pain Score: Most Recent Pain Score Pain Level 0 12/29/21 07:55 Assessment Mental Status: Awake (Alert & Oriented to Patient Baseline) Airway and Respiratory Function: Patent airway with normal (patient baseline) respiratory exam Cardiovascular Function: Hemodynamically Stable Hydration Status: Adequately Hydrated Nausea & Vomiting: No Nausea or Vomiting Pain: Pt. Denies Any Pain Peripheral Nerve Block: Patient did not receive a nerve block
[2021-12-29 08:30] VITALS: BP 100/65; PULSE 62; RESP 18; TEMP 36.4; O2SAT 96
== END 2021-12-29 09:00 | disposition home or self-care (01) ==
PROVIDERS: PCP Family Medicine; Visit Provider Urology
PROC: (CPT 51715; principal; 2021-12-29 07:30)
DX: N39.46 Mixed incontinence (principal); N36.42 Intrinsic sphincter deficiency (ISD); J44.9 Chronic obstructive pulmonary disease, unspecified; Z86.73 Personal history of transient ischemic attack (TIA), and cerebral infarction without residual deficits; I10 Essential (primary) hypertension; E78.5 Hyperlipidemia, unspecified
CPT/HCPCS: 51715; J0690; J1885; J2405; L8606

== ENCOUNTER → 2022-04-25 14:47 | Outpatient (BNVA) | payer MEDICARE, SELFPAY | PROVIDERS: PCP Family Medicine; Referring Provider Family Medicine; Visit Provider Nurse Practitioner Gerontology | DX: R39.89 Other symptoms and signs involving the genitourinary system (principal); N39.46 Mixed incontinence | CPT/HCPCS: 51798; 81003; 99214 ==

== ENCOUNTER 2022-05-15 04:10 | Outpatient (CLI) | payer MEDICARE, SELFPAY ==
[2022-05-15 12:46] LABS: ALT 28 U/L (14-59); AST 21 U/L (15-37); Albumin 3.9 g/dL (3.4-5.0); Alkaline Phosphatase 106 U/L (46-116); Anion Gap 5.7 mmol/L (3-11); BUN 10 mg/dL (7-18); Bilirubin, Total 0.3 mg/dL (0.2-1.0); CO2 32.3 mmol/L (21.0-32.0); CREATININE 0.9 mg/dL (0.55-1.02); Calcium 9.4 mg/dL (8.5-10.1); Calculated LDL 62 mg/dL (<100); Chloride 103 mmol/L (98-107); Cholesterol 147 mg/dL (<200); Estimated GFR 66.26 (mL/min/1.73m2); Glucose 96 mg/dL (74-106); HDL Cholesterol 53 mg/dL (40-60); Sodium 141 mmol/L (136-145); Total Protein 7.6 g/dL (6.4-8.2); Triglyceride 160 mg/dL (<150)
== END 2022-05-15 04:11 | disposition home or self-care (01) ==
LOC: LOS 04:10
PROVIDERS: PCP Family Medicine; Visit Provider Family Medicine
DX: E78.5 Hyperlipidemia, unspecified (principal)
CPT/HCPCS: 36415; 80053; 80061

== ENCOUNTER → 2022-10-25 14:18 | Outpatient (BNVA) | payer MEDICARE, SELFPAY | PROVIDERS: PCP Family Medicine; Visit Provider Nurse Practitioner Gerontology | DX: N39.46 Mixed incontinence (principal); Z87.440 Personal history of urinary (tract) infections | CPT/HCPCS: 51798; 81003; 99214 ==

== ENCOUNTER 2022-11-09 06:12 | Day surgery (SDC) | payer MEDICARE, SELFPAY ==
[2022-11-09 06:28] VITALS: BP 138/71; PULSE 67; RESP 16; TEMP 36.6; O2SAT 95
[2022-11-09] MEDS: Lactated Ringers 1,000 ML 80 ML IV (06:40)
--- NOTE | 2022-11-09 06:48 | HPE_ITS ---
Date of service: 11/09/22 Time of Service: 06:48 Assessment and Plan Assessment and plan (1) Mixed stress and urge urinary incontinence: Status: Acute Assessment and plan: We will plan to inject a bulking agent at the bladder neck for the stress incontinence portion of her mixed incontinence. History of Present Illness History of Present Illness Chief Complaint: Mixed urinary incontinence Narrative: This is a 77-year-old woman who has a history of mixed urinary incontinence. She is using Myrbetriq for the urgency portion of her incontinence. She did have an injection of a bulking agent at the bladder neck for the stress portion of her incontinence. The injection was about a year ago and improved her symptoms dramatically. Her symptoms have since began to recur and she presents for repeat injection of a bulking agent at the bladder neck. She has no current dysuria or gross hematuria. She admits to voiding frequently. Review of Systems Narrative: No fevers or chills Seasonal allergies. No vision change or dysphasia No diabetes or thyroid dysfunction Short of breath due to COPD. No hemoptysis No chest pain or palpitations No nausea, vomiting, hepatitis, ulcers, jaundice Hx stroke. No seizures No bleeding disorders or anemia No gout PFSH All Active Problems CVA (cerebral vascular accident) (Chronic 08/15/16) [facility] Chronic obstructive lung disease (Chronic 09/17/12) Depressive disorder (Chronic) Hyperlipidemia (Chronic) Pelvic floor dysfunction (Chronic 11/09/16) Essential hypertension (Acute) BMI 38.0-38.9,adult (Acute) Eczema (Acute) Mixed stress and urge urinary incontinence (Acute) Skin lesions (Acute) Medical History Atypical chest pain h/o chest pressure; s/p workup which was neg. Benign paroxysmal positional vertigo Carpal tunnel syndrome 11/16/08 Contact dermatitis Derangement of medial meniscus of left knee (12/24/17) Diverticulosis of colon without diverticulitis (01/08/09) Eczema Elevated blood pressure reading Essential hypertension 03/13/13 Fibrocystic breast disease Functional gait abnormality (11/09/16) Per pt. walks indepenedently does not require assitance, and is stable. H/O echocardiogram 06/11/07 EF 63% Left knee DJD S/P left TKA Neck pain Palpitations in the past; underwent Holter and MPI. Had no Cardiac problems. Plantar fasciitis Sleep disorder (09/17/12) Smoker quit many years ago Tightness in chest 02/04/15 neg stress test Trigger finger, left index finger 01/07/16 Vertigo benign positional vertigo Surgical History Colonoscopy - IV Sedation (~01/2009) diverticula ECHO (~06/2007) EJECTION FRACTION 63% H/O reduction mammoplasty 06/11/06 History of bilateral tubal ligation 06/11/92 History of D&C History of tonsillectomy History of total left knee replacement (TKR) (10/24/18) DOS: 10/24/2018 Dr. Obando Ligation of fallopian tube (~1982) BILAT PART SALPINGEC Reduction mammoplasty (~09/2006) Family History Mother Heart disease CHF Smoker Father Heart disease [place] Colitis Stroke Sister Asthma Brother Prostate cancer Maternal Grandfather Lung cancer Paternal Grandfather Heart disease Stroke Maternal Grandmother Stomach cancer Paternal Grandmother Diabetes Heart disease Daughter Graves' disease Daughter No problems noted. Social History (Updated 05/19/22 @ 18:37 by Lissette Vieyra) Smoking/Tobacco Use Status: Former Tobacco Use tobacco type: cigarettes Quit Date: 06/11/88 Tobacco: How many years used: 30 Second Hand Exposure: Yes Smoking risk assessment performed?: Yes Alcohol Intake: current Alcohol Intake frequency: a few times a month Alcohol type: wine Drug use: Daily Substance use type: marijuana Caregiver/Support person: Yes Household members: significant other Housing: house Communication Needs: None Do you need help understanding health information?: Never Pets and animals: Yes Pets and animals: dog(s) and bird(s) Sexually active: No Do you think of yourself as: straight/heterosexual Current gender identity: female What is your relationship status?: How often do you talk on the phone with friends or family?: three or more times per week How often do you get together with friends or relatives?: once per week How often do you attend moravian or alevism services?: decline to answer Do you belong to any clubs or organized social groups?: no Panel score (0-1 are the most socially isolated patients): 2 What type of physical activity do you participate in: walking and aerobic Duration: 15-30 minutes/day Frequency: decline to answer Nani/Samaritan: None Special nani needs: No Seatbelt use: always Drive intox or ride w/intox delivery driver/customer service: No Do you feel safe at home: Yes Do you feel safe in your relationship?: Yes Meds Allergies and Home Medications Allergies Allergy/AdvReac Type Severity Reaction Status Date / Time No Known Allergies Allergy Verified 11/08/22 14:47 Home Medications Medication Instructions Recorded Confirmed Type multivitamin 1 tab PO DAILY 09/12/12 11/09/22 History acetaminophen 500 mg tablet 1,000 mg PO Q8H PRN pain #90 tabs 10/25/18 11/08/22 Rx aspirin 81 mg tablet,delayed 81 mg PO DAILY 04/29/19 11/08/22 History release triamcinolone acetonide 0.1 % 1 applic topical BID PRN redness 08/11/21 11/08/22 Rx topical cream #80 grams estradiol 10 mcg vaginal tablet 10 mcg vaginal .3 times weekly #36 05/02/22 11/08/22 Rx (Yuvafem) tabs Flovent HFA 110 mcg/actuation 2 puff inhalation BID #12 grams 05/15/22 11/08/22 Rx aerosol inhaler (fluticasone propionate) albuterol sulfate 90 mcg/actuation 2 puff inhalation Q6H PRN 05/15/22 11/08/22 Rx aerosol inhaler (Ventolin HFA) shortness of breath or wheezing #25.5 grams atorvastatin 10 mg tablet 10 mg PO HS #90 tabs 05/15/22 11/09/22 Rx escitalopram oxalate 10 mg tablet 10 mg PO HS #90 tabs 05/15/22 11/09/22 Rx (Lexapro) losartan 50 mg tablet 50 mg PO DAILY #90 tab-caps 05/15/22 11/09/22 Rx mirabegron 50 mg tablet,extended 50 mg PO DAILY #90 tabs 05/15/22 11/09/22 Rx release 24 hr Exam Const General: cooperative Neck Neck: supple Resp Effort & Inspection: normal respiratory effort Auscultation: clear to auscultation bilaterally Cardio Rate: regular rate Rhythm: regular rhythm GI Palpation: soft Neuro General: patient alert, patient awake and patient oriented x3 Results Last Vital Signs Temp 36.6 C 11/09/22 06:28 Pulse 67 11/09/22 06:28 Resp 16 11/09/22 06:28 BP 138/71 11/09/22 06:28 Pulse Ox 95 11/09/22 06:28 Time Spent Time spent with Patient: <40 minutes Time was spent: other
--- NOTE | 2022-11-09 07:08 | W.ANESPRE ---
General Info Date of Service Date Performed: 11/09/22 Height: 5 ft 5 in Weight: 102.7 kg Body Mass Index (BMI): 37.6 Surgical Procedure: Operation Date: 11/09/22 07:40 Proposed Procedure Side Surgeon p Cystoscopy/Transuretheral Injection of Coaptite Noe Singh MD Meds Allergies and Home Medications Allergies Allergy/AdvReac Type Severity Reaction Status Date / Time No Known Allergies Allergy Verified 11/08/22 14:47 Home Medication Medication Instructions Recorded multivitamin 1 tab PO DAILY 09/12/12 acetaminophen 500 mg tablet 1,000 mg PO Q8H PRN pain #90 tabs 10/25/18 aspirin 81 mg tablet,delayed 81 mg PO DAILY 04/29/19 release triamcinolone acetonide 0.1 % 1 applic topical BID PRN redness 08/11/21 topical cream #80 grams estradiol 10 mcg vaginal tablet 10 mcg vaginal .3 times weekly #36 05/02/22 (Yuvafem) tabs Flovent HFA 110 mcg/actuation 2 puff inhalation BID #12 grams 05/15/22 aerosol inhaler (fluticasone propionate) albuterol sulfate 90 mcg/actuation 2 puff inhalation Q6H PRN 05/15/22 aerosol inhaler (Ventolin HFA) shortness of breath or wheezing #25.5 grams atorvastatin 10 mg tablet 10 mg PO HS #90 tabs 05/15/22 escitalopram oxalate 10 mg tablet 10 mg PO HS #90 tabs 05/15/22 (Lexapro) losartan 50 mg tablet 50 mg PO DAILY #90 tab-caps 05/15/22 mirabegron 50 mg tablet,extended 50 mg PO DAILY #90 tabs 05/15/22 release 24 hr Current Visit Medications: Current Medications Generic Name Dose Route Start Last Admin Trade Name Freq PRN Reason Stop Dose Admin Ringer's Solution 1,000 mls @ 80 mls/hr 11/09/22 06:00 11/09/22 06:40 IV 12/08/22 23:59 80 mls/hr INFUSION CHRISTIN Administration Cefazolin Sodium/Dextrose 2 gm in 50 mls @ 100 mls/hr 11/09/22 06:00 Ancef Duplex IVPB 12/08/22 23:59 PREOP CHRISTIN IV Miscellaneous Supplies 1 each 11/09/22 06:00 Iv Access IV 12/08/22 23:59 DIRECTED CHRISTIN Sodium Chloride 0 ml 11/09/22 06:00 Normal Saline Flush 10 Ml Syr IV 12/08/22 23:59 PRN PRN Sodium Chloride 0 ml 11/09/22 06:00 Normal Saline 10 Ml Vial IJ 12/08/22 23:59 DIRECTED PRN Sterile Water 0 ml 11/09/22 06:00 Water,Injection,Sterile 10 Ml Vial IJ 12/08/22 23:59 DIRECTED PRN PFSH Active Problems Active Problems: Problem Status Onset Code CVA (cerebral vascular accident) 08/15/16 I63.9 Chronic obstructive lung disease 09/17/12 J44.9 Depressive disorder F32.9 Hyperlipidemia E78.5 Pelvic floor dysfunction 11/09/16 M62.89 Essential hypertension I10 BMI 38.0-38.9,adult Z68.38 Eczema L30.9 Mixed stress and urge urinary incontinence N39.46 Skin lesions L98.9 Medical History Medical History Atypical chest pain h/o chest pressure; s/p workup which was neg. Benign paroxysmal positional vertigo Carpal tunnel syndrome 11/16/08 Contact dermatitis Derangement of medial meniscus of left knee (12/24/17) Diverticulosis of colon without diverticulitis (01/08/09) Eczema Elevated blood pressure reading Essential hypertension 03/13/13 Fibrocystic breast disease Functional gait abnormality (11/09/16) Per pt. walks indepenedently does not require assitance, and is stable. H/O echocardiogram 06/11/07 EF 63% Left knee DJD S/P left TKA Neck pain Palpitations in the past; underwent Holter and MPI. Had no Cardiac problems. Plantar fasciitis Sleep disorder (09/17/12) Smoker quit many years ago Tightness in chest 02/04/15 neg stress test Trigger finger, left index finger 01/07/16 Vertigo benign positional vertigo Surgical History Surgical History Colonoscopy - IV Sedation (~01/2009) diverticula ECHO (~06/2007) EJECTION FRACTION 63% H/O reduction mammoplasty 06/11/06 History of bilateral tubal ligation 06/11/92 History of D&C History of tonsillectomy History of total left knee replacement (TKR) (10/24/18) DOS: 10/24/2018 Dr. Obando Ligation of fallopian tube (~1982) BILAT PART SALPINGEC Reduction mammoplasty (~09/2006) Tobacco Smoking/Tobacco Use Status: Former Tobacco Use Passive smoking exposure: Yes Second hand exposure: Yes Alcohol Alcohol Intake: current Alcohol intake frequency: a few times a month Alcohol type: wine Substance Use Substance use: Daily Substance use type: marijuana Vital Signs and Lab Results Vital Signs Most Recent Vital Signs in EMR: Most Recent Vital Signs Temp Pulse Resp BP Pulse Ox 36.6 C 67 16 138/71 95 11/09/22 06:28 11/09/22 06:28 11/09/22 06:28 11/09/22 06:28 11/09/22 06:28 Lab Results Blood Type / Crossmatch: No Data to Display Complete Blood Count: No Data to Display Complete Metabolic Panel: No Data to Display Liver Function Panel: No Data to Display Coagulation Panel: No Data to Display Cardiac Panel: No Data to Display Arterial Blood Gas: No Data to Display Venous Blood Gas: No Data to Display Pancreas Panel: No Data to Display Thyroid Panel: No Data to Display Infectious Disease: No Data to Display Blood Cultures: No Data to Display Toxicology Panel: No Data to Display Imaging and Studies Imaging and Studies Study information below may be from another EMR and interpreted by another provider. Please see original notes in EMR for more complete details. Stress Test Summary: Date of study: 01/28/2015 *PATIENT PRESENTATION* Height: 162.6cm (64in ) Blood Pressure: Weight: 111.4kg (245lb ) BSA: 2.3m^2 Impressions: Normal study after maximal exercise. Anesthesia Assessment and Plan Anesthesia History Personal History: No History of Anesthesia Complications Family History: No Family History of Anesthesia Complications Exercise Tolerance Exercise Tolerance: Metabolic Equivalents>4 Pertinent Negatives Pertinent Negatives: No Symptoms of GERD Cardiac & Pulmonary Exam Cardiac Exam: Normal S1/S2 Heart Sounds Pulmonary Exam: Clear Bilateral Breath Sounds Implantable Cardiac Device Does patient have a Pacemaker or an ICD?: No Airway Exam Known Difficult Airway: No Mallampati Class: 2 Mouth Opening: Normal (> 3cm) Thyromental Distance: Greater than 3 cm Neck Range of Motion: Full ROM Neck Circumference: Normal Teeth Condition: Normal Dentition and Other (Broken front tooth, not loose per pt) ASA Classification ASA Score: ASA 2 Emergency Case?: No NPO Status NPO Status: NPO Clears >2 hours, Solids >8 hours Anesthesia Plan Resuscitation Status: Full Code Anesthesia Technique: General Anesthesia Airway Planned: Natural Airway Monitors Used: Standard Monitors
[2022-11-09 07:10] VITALS: BMI 37.6
[2022-11-09] MEDS: ceFAZolin 2 GM/50 ML BAG IVPB (07:25)
[2022-11-09] MEDS: Lidocaine 2% Jelly 6 ML SYR (07:38)
--- NOTE | 2022-11-09 07:46 | W.PM.DSUDISC ---
Date of service: 11/09/22 Time of Service: 07:47 Discharge Plan Disposition Condition: Stable Discharge Details Reason For Visit: cystoscopy with Coaptite Attending Provider: Noe Singh Primary Care Provider: Yue Hoffmann Home Meds and New Rx's Prescriptions: No Action aspirin 81 mg tablet,delayed release (DR/EC) 81 mg PO DAILY triamcinolone acetonide 0.1 % cream 1 applic TP BID PRN (Reason: redness) Qty: 80 1RF Rx Instructions: apply to arms albuterol sulfate [Ventolin HFA] 90 mcg/actuation HFA aerosol inhaler 2 puff inhalation Q6H PRN (Reason: shortness of breath or wheezing) Qty: 25.5 6RF atorvastatin 10 mg tablet 10 mg PO HS Qty: 90 4RF escitalopram oxalate [Lexapro] 10 mg tablet 10 mg PO HS Qty: 90 5RF fluticasone propionate [Flovent HFA] 110 mcg/actuation HFA aerosol inhaler 2 puff Inhalation BID Qty: 12 5RF losartan 50 mg tablet 50 mg PO DAILY Qty: 90 11RF mirabegron 50 mg tablet extended release 24 hr 50 mg PO DAILY Qty: 90 4RF multivitamin 1 EACH tablet 1 tab PO DAILY estradiol [Yuvafem] 10 mcg tablet 10 mcg vaginal .3 times weekly Qty: 36 4RF acetaminophen 500 mg tablet 1,000 mg PO Q8H PRN (Reason: pain) Qty: 90 3RF Discharge Instructions Additional Instructions: call 1 week with progress report Activity:: Activity as Tolerated Shower/Bathe:: 24 hours Diet:: As Tolerated DS: Diagnosis Discharge Diagnosis (1) Mixed stress and urge urinary incontinence: Status: Acute
[2022-11-09 07:51] VITALS: BP 100/53; PULSE 67; RESP 17; TEMP 32.2; O2SAT 95
--- NOTE | 2022-11-09 07:51 | W.PM.OP ---
Date of service: 11/09/22 Time of Service: 07:51 Operative Note Operative Note DATE OF PROCEDURE: 11/09/22 PRE-OP DIAGNOSIS: Stress urinary incontinence POST-OP DIAGNOSIS: same PROCEDURE: cystoscopy with transurethral injection of Coaptite SURGEON: Noe Singh ANESTHESIA TYPE: General:No Airway Refer to Anesthesia Record ESTIMATED BLOOD LOSS: 0 PATHOLOGY: none sent COMPLICATIONS: None Patient was transported to: same day Patient's condition: stable Implants: 1 vial Coaptite Indications: This is a 77-year-old woman who has a history of mixed urinary incontinence. The urgency portion of her incontinence is being treated with oral Myrbetriq. The stress incontinence component of her incontinence has improved in the past with an injection of bulking agent at the bladder neck. Her symptoms have since begun to recur. She presents for repeat injection. Findings: Small amount of residual Coaptite at the bladder neck Procedure Description: The patient was brought to the operating room on 11/09/2022. She was given a dose of preoperative IV antibiotics. After successful induction of general anesthesia without intubation, she was placed in the dorsal lithotomy position. Her genitalia was prepped and draped. 2% Xylocaine jelly was instilled into the urethra to act as a local anesthetic. A 20 [place] urethrotome sheath was passed through the urethra into the bladder. The bladder neck was inspected with a 30 degree lens. There appeared to be some residual Coaptite at the bladder neck. At rest, the bladder neck did appear slightly open. Using a transurethral injection system, we injected an additional vial of Coaptite at the bladder neck. We injected into 3 separate sites and there appeared to be good coaptation of the bladder neck mucosa when viewed cystoscopically. The scope was then removed. The bladder was drained with a straight catheter. The patient tolerated this procedure well with no complications.
--- NOTE | 2022-11-09 07:56 | W.ANESPOSTOP ---
Postoperative Evaluation Date, Time and Location Date Performed: 11/09/22 Time Performed: 07:56 Patient Location: Day Surgery Unit Vital Signs Most Recent Imported Vital Signs: Most Recent Vital Signs Temp Pulse Resp BP Pulse Ox 36.6 C 67 16 138/71 95 11/09/22 06:28 11/09/22 06:28 11/09/22 06:28 11/09/22 06:28 11/09/22 06:28 Pain Score Most Recent Pain Score: Most Recent Pain Score Pain Level 0 11/09/22 06:28 Assessment Mental Status: Awake (Alert & Oriented to Patient Baseline) Airway and Respiratory Function: Patent airway with normal (patient baseline) respiratory exam Cardiovascular Function: Hemodynamically Stable Hydration Status: Adequately Hydrated Nausea & Vomiting: No Nausea or Vomiting Pain: Pt. Denies Any Pain Peripheral Nerve Block: Patient did not receive a nerve block
[2022-11-09 08:21] VITALS: BP 110/61; PULSE 57; RESP 17; TEMP 36.5; O2SAT 96
[2022-11-09 08:27] VITALS: BP 112/59; PULSE 57; RESP 18; TEMP 35.7; O2SAT 97
== END 2022-11-09 08:55 | disposition home or self-care (01) ==
PROVIDERS: PCP Family Medicine; Visit Provider Urology
PROC: (CPT 51715; principal; 2022-11-09 07:30)
DX: N39.46 Mixed incontinence (principal); J44.9 Chronic obstructive pulmonary disease, unspecified; I10 Essential (primary) hypertension; E78.5 Hyperlipidemia, unspecified
CPT/HCPCS: 51715; J0690; J1885; J2001; J2405; J2704; L8606

== ENCOUNTER 2022-12-07 09:25 | Outpatient (CLI) | payer MEDICARE, SELFPAY ==
[2022-12-07 11:22] LABS: ALT 28 U/L (14-59); AST 21 U/L (15-37); Albumin 3.6 g/dL (3.4-5.0); Alkaline Phosphatase 101 U/L (46-116); Anion Gap 7.1 mmol/L (3-11); BUN 10 mg/dL (7-18); Bilirubin, Total 0.4 mg/dL (0.2-1.0); CO2 29.9 mmol/L (21.0-32.0); CREATININE 0.9 mg/dL (0.55-1.02); Calcium 9.2 mg/dL (8.5-10.1); Calculated LDL 67 mg/dL (<100); Chloride 105 mmol/L (98-107); Cholesterol 154 mg/dL (<200); Estimated GFR 66.26 (mL/min/1.73m2); Glucose 90 mg/dL (74-106); HDL Cholesterol 50 mg/dL (40-60); Potassium 4.5 mmol/L (3.5-5.1); Sodium 142 mmol/L (136-145); Total Protein 7.7 g/dL (6.4-8.2); Triglyceride 188 mg/dL (<150)
[2022-12-07 11:25] LABS: Hemoglobin A1C 5.8 % (<5.7)
== END 2022-12-07 09:26 | disposition home or self-care (01) ==
LOC: LOS 09:25
PROVIDERS: PCP Family Medicine; Visit Provider Family Medicine
DX: I10 Essential (primary) hypertension (principal); E11.9 Type 2 diabetes mellitus without complications
CPT/HCPCS: 36415; 80053; 80061; 83036

== ENCOUNTER 2023-05-01 03:18 | Outpatient (CLI) | payer MEDICARE, SELFPAY ==
[2023-05-01 14:04] LABS: ALT 25 U/L (14-59); AST 21 U/L (15-37); Albumin 3.7 g/dL (3.4-5.0); Alkaline Phosphatase 86 U/L (46-116); Anion Gap 3.8 mmol/L (3-11); BUN 17 mg/dL (7-18); Bilirubin, Total 0.4 mg/dL (0.2-1.0); CO2 28.2 mmol/L (21.0-32.0); CREATININE 1.1 mg/dL (0.55-1.02); Calcium 9.7 mg/dL (8.5-10.1); Chloride 105 mmol/L (98-107); Estimated GFR 51.75 (mL/min/1.73m2); Glucose 99 mg/dL (74-106); Hemoglobin A1C 5.3 % (<5.7); Sodium 137 mmol/L (136-145); Total Protein 7.6 g/dL (6.4-8.2)
== END 2023-05-01 03:19 | disposition home or self-care (01) ==
LOC: LBO 03:20
PROVIDERS: PCP Family Medicine; Visit Provider Family Medicine
DX: E11.9 Type 2 diabetes mellitus without complications (principal); I10 Essential (primary) hypertension
CPT/HCPCS: 36415; 80053; 83036

== ENCOUNTER 2024-01-27 05:09 | Emergency (ER) | payer MEDICARE, SELFPAY ==
[2024-01-27 05:11] VITALS: BP 149/77; PULSE 80; RESP 18; TEMP 36.5; O2SAT 97
[2024-01-27] MEDS: Dexamethasone 10 MG/ML VIAL 12 MG IVP (05:36)
[2024-01-27] MEDS: CLINDAMYCIN 600 MG/50 ML BAG 100 MG IVPB (05:36)
[2024-01-27] MEDS: Ketorolac 15 MG/ML VIAL IVP (05:36)
[2024-01-27 05:38] LABS: Abs Immature Grans 0.03 10^3/uL (0.0-0.06); Absolute Basophil Count 0.05 10^3/uL (0.0-0.2); Absolute Eosinophil Count 0.28 10^3/uL (0.0-0.7); Absolute Lymphocyte Count 1.24 10^3/uL (1.2-3.4); Absolute Monocyte Count 1.11 10^3/uL (0.1-0.8); Basophils % 0.5 %; Eosinophils % 2.8 %; HCT 44.1 % (36.0-46.0); HGB 14.2 g/dL (11.2-15.7); Immature Grans % 0.3 %; Lactate 1.5 mmol/L (0.6-1.4); Lymphocytes % 12.4 %; MCH 31.1 pg (27.0-33.0); MCHC 32.2 % (32.0-36.0); MCV 97 fL (80-95); MPV 9.3 fL (8.0-11.0); Monocytes % 11.1 %; Neutrophils % 72.9 %; Platelet Count 244 10^3/uL (130-400); RBC 4.56 10^6/uL (3.93-5.22); RDW 12.7 % (11.7-14.6); RDW-SD 45.4 fL; WBC 10.01 10^3/uL (4.4-10.8)
[2024-01-27] MEDS: Bupivacaine 0.5% Pres-Free 30 ML VIAL (05:40)
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
[2024-01-27 05:43] VITALS: O2SAT 94
[2024-01-27 05:50] VITALS: O2SAT 94
[2024-01-27 06:00] VITALS: O2SAT 94
[2024-01-27 06:01] LABS: ALT 20 U/L (14-59); AST 17 U/L (15-37); Albumin 3.6 g/dL (3.4-5.0); Alkaline Phosphatase 115 U/L (46-116); Anion Gap 7.8 mmol/L (3-11); BUN 18 mg/dL (7-18); Bilirubin, Total 0.58 mg/dL (0.2-1.0); CO2 29.2 mmol/L (21.0-32.0); Calcium 9.9 mg/dL (8.5-10.1); Chloride 102 mmol/L (98-107); Estimated GFR 58.02 (mL/min/1.73m2); Glucose 113 mg/dL (74-106); Potassium 4.3 mmol/L (3.5-5.1); Sodium 139 mmol/L (136-145)
[2024-01-27 06:17] LABS: Procalcitonin < 0.1 ng/mL
[2024-01-27] MEDS: Omnipaque 350 MG/ML 100 ML BTL IJ (06:20)
[2024-01-27] MEDS: Normal Saline - Diluent 50 ML VIAL IJ (06:21)
--- NOTE | 2024-01-27 06:22 | DI.CT_ITS ---
Exam(s) CT NECK W EXAM: CT NECK W CLINICAL HISTORY: large right dental swelling, eval for Ludewig's. TECHNIQUE: Imaging Protocol: Axial computed tomography images with coronal and sagittal reformatted images were created and reviewed. CONTRAST MATERIAL: Intravenous: Omnipaque 350 Contrast volume:100mL COMPARISON: No exams were available for comparison FINDINGS: Orbits and orbital soft tissues: Within normal limits. Visualized paranasal sinuses: There is a mucous retention cyst or polyp in the right maxillary sinus . The remaining visualized paranasal sinuses and mastoid air cells are clear. Nasopharynx: Within normal limits. Oropharynx: Within normal limits. Hypopharynx: Within normal limits. Larynx: Within normal limits. Retropharyngeal space: Within normal limits. Parotids/submandibular: Within normal limits. Thyroid gland: Within normal limits. Lymphadenopathy: There are enlarged lymph nodes seen in the submandibular region, right greater than the left. These are likely reactive. The largest measures 1.6 x 0.9 cm. Trachea: Within normal limits. Lung apices: Within normal limits. Bones: Within normal limits for the patient's age. Carotids/Jugular: Within normal limits. Mild atherosclerotic calcification is seen of the thoracic a delphine. Soft tissues: No focal fluid collection is seen to suggest an abscess. There is infiltration in th e soft tissues of the right cheek extending inferiorly into the right submandibular region in the rig ht neck. There is thickening of the right platysma muscle. Periapical lucencies are seen in both ma xillary and mandibular teeth. IMPRESSION: 1. Cellulitis involving the right cheek right submandibular region and right neck. No focal fluid co llection is seen to suggest an abscess. 2. Maxillary and mandibular periodontal disease. Dental referral is recommended. RADIATION DOSE DELIVERED: Total DLP Total DLP DATA REPOSITORY: All CT scans at this facility are submitted to the National Radiology Data Registry (NRDR) Dose Index Registry (DIR) with the [employer] (ACR). RADIATION OPTIMIZATION: All CT scans at this facility use at least one of these dose optimization te chniques: automated exposure control; mA and/or kV adjustment per patient size (includes targeted exa ms where dose is matched to clinical indication); or iterative reconstruction.
--- NOTE | 2024-01-27 07:06 | DI.VRAD_ITS ---
PROCEDURE INFORMATION: Exam: CT Neck With Contrast Exam date and time: 01/27/2024 6:15 AM Age: 78 years old Clinical indication: Mass, lump, or swelling in neck; Patient HX: Large right dental swelling, eval for santa's TECHNIQUE: Imaging protocol: Computed tomography of the neck with contrast. Radiation optimization: All CT scans at this facility use at least one of these dose optimization techniques: automated exposure control; mA and/or kV adjustment per patient size (includes targeted exams where dose is matched to clinical indication); or iterative reconstruction. Contrast material: OMNIPAQUE 350; Contrast volume: 100 ml; Contrast route: INTRAVENOUS (IV); COMPARISON: No relevant prior studies available. FINDINGS: Edema is present in the subcutaneous fat of the right face and upper neck region. There is thickening of the platysma muscle. Relatively mild edema in the fat deep to the platysma muscle in the right submandibular and submental space. Fat planes in the floor of mouth are preserved. No localized fluid collection to indicate soft tissue abscess is seen. Periodontal bone resorption involves multiple maxillary and mandibular teeth, most prominently involving the left maxillary 1st incisor. Parotid glands are symmetric in size. Submandibular glands are symmetric in size. Parapharyngeal fat planes are preserved. Internal jugular veins are patent. Minimal carotid atherosclerosis without significant stenosis. Chronic multilevel cervical degenerative disc disease and facet DJD are present, producing variable degrees of chronic cervical canal and foraminal stenoses. No acute abnormality of the orbits is identified. Paranasal sinuses are well-aerated other than a mucous retention cyst inferiorly in the right maxillary sinus. IMPRESSION: 1. No soft tissue abscess identified. 2. Findings compatible with superficial cellulitis right face and upper neck region. There is minimal involvement of the right submandibular space. 3. Dental caries and multifocal periodontal bone disease. Dental referral is recommended. Dictated and Authenticated by: Ganesh Ruiz MD. Ordering:OREN Ferreira MD
[2024-01-27 07:32] VITALS: BP 140/74; PULSE 80; RESP 18; TEMP 36.5; O2SAT 95
== END 2024-01-27 07:36 | disposition home or self-care (01) ==
PROVIDERS: Emergency Provider Student in an Organized Health Care Education/Training Program; PCP Family Medicine
DX: R68.84 Jaw pain (principal); K04.7 Periapical abscess without sinus
CPT/HCPCS: 36415; 70491; 80053; 84145; 96374; 96375; 99285; 83605; 85025; 99283; J0665; J0737; J1100; J1885; J3490

== ENCOUNTER → 2024-10-14 09:15 | Outpatient (BNVA) | payer MEDICARE, SELFPAY | PROVIDERS: PCP Family Medicine; Referring Provider Family Medicine; Visit Provider Nurse Practitioner Gerontology | DX: N39.46 Mixed incontinence (principal) | CPT/HCPCS: 51798; 99214 ==

== ENCOUNTER 2024-11-11 09:03 | Outpatient (CLI) | payer MEDICARE, SELFPAY ==
[2024-11-11 12:32] LABS: ALT 15 U/L (14-59); AST 20 U/L (15-37); Albumin 3.4 g/dL (3.4-5.0); Alkaline Phosphatase 111 U/L (46-116); Anion Gap 1.6 mmol/L (3-11); BUN 15 mg/dL (7-18); Bilirubin, Total 0.3 mg/dL (0.2-1.0); CO2 33.4 mmol/L (21.0-32.0); CREATININE 0.8 mg/dL (0.55-1.02); Calcium 9.5 mg/dL (8.5-10.1); Calculated LDL 74 mg/dL (<100); Chloride 105 mmol/L (98-107); Cholesterol 153 mg/dL (<200); Estimated GFR 75.37 (mL/min/1.73m2); Glucose 83 mg/dL (74-106); HDL Cholesterol 47 mg/dL (>or=50); Potassium 4.3 mmol/L (3.5-5.1); Sodium 140 mmol/L (136-145); Total Protein 7.4 g/dL (6.4-8.2); Triglyceride 160 mg/dL (<150)
[2024-11-11 12:34] LABS: Hemoglobin A1C 5.4 % (<5.7)
== END 2024-11-11 09:04 | disposition home or self-care (01) ==
PROVIDERS: PCP Family Medicine; Referring Provider Family Medicine; Visit Provider Family Medicine
DX: E11.9 Type 2 diabetes mellitus without complications (principal); I10 Essential (primary) hypertension
CPT/HCPCS: 36415; 80053; 80061; 83036

== ENCOUNTER 2024-11-18 00:55 | Outpatient (CLI) | payer MEDICARE, SELFPAY ==
--- NOTE | 2024-11-18 06:33 | DI.DEXA_ITS ---
Exam(s) XR DEXA BONE DENSITY W/WO WALT EXAM: XR DEXA BONE DENSITY W/WO WALT CLINICAL HISTORY: postmenopausal status,z78.0 TECHNIQUE: Routine DEXA evaluation of the lumbar spine, hip, or forearm. COMPARISON: Prior DEXA scan July 2002 FINDINGS: Performed on a Hologic unit. Lateral image: No compression fracture evident. Lumbar Spine total T-score: -1.7 which is osteopenia range. Prior reading in 2002 was -0.5 which was in normal range at that time Hip total T-score:-1.8 which is osteopenia range. Prior reading in 2002 was -0.5. Independent reading at the level of the femoral neck yields T-score of -2.5 which is beginning osteo porosis range. Forearm total T-score: -1.4 which is osteopenia range. IMPRESSION: Bone mineral density measures predominantly in the osteopenia range. However at the femoral neck lev el the reading of -2.5 is beginning osteoporosis level. Fracture risk is moderate-high. Note: Any spine fracture indicates 5x risk for subsequent spine fracture and 2x risk for subsequent h ip fracture. World Health Organization criteria for BMD interpretation classify patients: Normal...... T- Score at or above -1.0 Osteopenic... T- Score between -1.0 and -2.5 Osteoporosis... T-Score at or below -2.5
== END 2024-11-18 01:15 ==
LOC: DI 00:55
PROVIDERS: PCP Family Medicine; Visit Provider Family Medicine
DX: Z78.0 Asymptomatic menopausal state (principal); M85.88 Other specified disorders of bone density and structure, other site
CPT/HCPCS: 77080

== ENCOUNTER 2024-11-24 06:17 | Day surgery (SDC) | payer MEDICARE, SELFPAY ==
[2024-11-24 06:29] VITALS: BP 139/61; PULSE 64; RESP 18; TEMP 36; O2SAT 96
--- NOTE | 2024-11-24 06:43 | W.PM.HP.N ---
Date of service: 11/24/24 Time of Service: 06:43 Assessment and Plan Assessment and plan (1) Mixed stress and urge urinary incontinence: Status: Acute Assessment and plan: We will perform cystoscopy and transurethral injection of a bulking agent at the bladder neck for the intrinsic sphincter deficiency portion of her urinary incontinence. History of Present Illness History of Present Illness Chief Complaint: Incontinence due to ISD Narrative: This is a 79-year-old woman who has a history of mixed urinary incontinence. She has been on beta 3 agonists for the urgency incontinence portion but her stress incontinence has worsened. She presents for repeat injection of a bulking agent at the bladder neck. She has no dysuria or gross hematuria. Review of Systems Narrative: No fevers or chills No vision change or dysphasia No diabetes or thyroid dysfunction COPD. No hemoptysis No chest pain or palpitations No nausea, vomiting, hepatitis, ulcers, jaundice Hx stroke. No seizures No bleeding disorders or anemia No gout or arthralgia PFSH All Active Problems Obesity (BMI 30-39.9) (Acute) Stress due to spouse with dementia (Acute) CVA (cerebral vascular accident) (Chronic 08/15/16) [facility] Chronic obstructive lung disease (Chronic 09/17/12) Depressive disorder (Chronic) Hyperlipidemia (Chronic) Pelvic floor dysfunction (Chronic 11/09/16) Essential hypertension (Acute) BMI 38.0-38.9,adult (Acute) Eczema (Acute) Mixed stress and urge urinary incontinence (Acute) Skin lesions (Acute) Medical History Elevated blood pressure reading Benign paroxysmal positional vertigo Fibrocystic breast disease Atypical chest pain h/o chest pressure; s/p workup which was neg. Contact dermatitis Palpitations in the past; underwent Holter and MPI. Had no Cardiac problems. Vertigo benign positional vertigo Smoker quit many years ago H/O echocardiogram 06/11/07 EF 63% Carpal tunnel syndrome 11/16/08 Essential hypertension 03/13/13 Tightness in chest 02/04/15 neg stress test Trigger finger, left index finger 01/07/16 Eczema Left knee DJD S/P left TKA Sleep disorder (09/17/12) Plantar fasciitis Neck pain Functional gait abnormality (11/09/16) Per pt. walks indepenedently does not require assitance, and is stable. Diverticulosis of colon without diverticulitis (01/08/09) Derangement of medial meniscus of left knee (12/24/17) Surgical History History of total left knee replacement (TKR) (10/24/18) DOS: 10/24/2018 Dr. Obando History of D&C History of tonsillectomy History of bilateral tubal ligation 06/11/92 H/O reduction mammoplasty 06/11/06 Ligation of fallopian tube (~1982) BILAT PART SALPINGEC ECHO (~06/2007) EJECTION FRACTION 63% Colonoscopy - IV Sedation (~01/2009) diverticula Reduction mammoplasty (~09/2006) Family History (Updated 11/12/24 @ 14:08 by Bernie Jenkins) Mother , Age 78 Heart disease CHF Smoker Father , Age 62 Heart disease [place] Colitis Stroke Sister Asthma Brother , Age 80 Prostate cancer Stroke Maternal Grandfather Lung cancer Paternal Grandfather Heart disease Stroke Maternal Grandmother Stomach cancer Paternal Grandmother Diabetes Heart disease Daughter Graves' disease Daughter No problems noted. Social History (Updated 11/12/24 @ 14:08 by Bernie Jenkins) Smoking/Tobacco Use Status: Former Tobacco Use tobacco type: cigarettes Quit Date: 06/11/93 Tobacco: How many years used: 25 Second Hand Exposure: Yes Smoking risk assessment performed?: Yes Alcohol Intake: current Alcohol Intake frequency: a few times a month Alcohol type: wine Drug use: Daily Substance use type: marijuana Adopted: No Caregiver/Support person: No Household members: spouse Housing: house Number of Children: 2 number of grandchildren: 6 Communication Needs: None Education Level: master's degree Do you need help understanding health information?: Never current occupation: retired Pets and animals: Yes Pets and animals: dog(s) and bird(s) Sexually active: No Do you think of yourself as: straight/heterosexual Current gender identity: female What is your relationship status?: How often do you talk on the phone with friends or family?: three or more times per week How often do you get together with friends or relatives?: twice per week Do you belong to any clubs or organized social groups?: yes Panel score (0-1 are the most socially isolated patients): 3 What type of physical activity do you participate in: walking, aerobic and swimming Duration: 15-30 minutes/day Frequency: 5-6 times per week Nani/Baptist: Non cheondoism Special nani needs: No Agree to transfusion: Yes Seatbelt use: always Drive intox or ride w/intox pedicab driver: No Working smoke detector in home: Yes Carbon monox detector in home: Yes Firearms in home: Yes Firearms unloaded and locked: Yes Do you feel safe at home: Yes Do you feel safe in your relationship?: Yes Victim of physical abuse: No Victim of emotional abuse: No Victim of sexual abuse: No Would you like helpful sources: No Meds Allergies and Home Medications Allergies Allergy/AdvReac Type Severity Reaction Status Date / Time clindamycin Allergy Intermediate Hives Verified 11/24/24 06:28 Home Medications ?Medication ?Instructions ?Recorded ?Confirmed ?Type multivitamin 1 tab PO DAILY 09/12/12 11/21/24 History acetaminophen 500 mg tablet 1,000 mg (2 x 500 mg) PO Q8H PRN 10/25/18 11/21/24 Rx pain #90 tabs aspirin 81 mg tablet,delayed 81 mg PO DAILY 04/29/19 11/21/24 History release fluticasone propionate 110 2 puff inhalation BID #12 grams 10/09/23 11/21/24 Rx mcg/actuation HFA aerosol inhaler ipratropium bromide 21 mcg (0.03 2 spray intranasal BID #30 mL 12/11/23 11/21/24 Rx %) nasal spray latanoprost 0.005 % eye drops 1 drp ophthalmic (eye) QPM 01/27/24 11/21/24 History triamcinolone acetonide 0.1 % 1 applic topical BID PRN redness 03/14/24 11/21/24 Rx topical cream #80 grams atorvastatin 10 mg tablet 10 mg PO HS #90 tabs 10/31/24 11/24/24 Rx escitalopram oxalate 10 mg tablet 10 mg PO HS #90 tabs 10/31/24 11/24/24 Rx (Lexapro) losartan 50 mg tablet 50 mg PO DAILY #90 tab-caps 10/31/24 11/24/24 Rx albuterol sulfate 90 mcg/actuation 2 puff inhalation Q6H PRN 11/11/24 11/24/24 Rx aerosol inhaler (Ventolin HFA) shortness of breath or wheezing #25.5 grams estradiol 10 mcg vaginal tablet 10 mcg vaginal .3 times weekly #36 11/11/24 11/21/24 Rx (Yuvafem) tabs gabapentin 100 mg capsule 100 mg PO TID #90 caps 11/11/24 11/24/24 Rx alendronate 70 mg tablet 70 mg PO QWEEK #14 tabs 11/20/24 11/24/24 Rx Exam Const General: cooperative Neck Neck: supple Resp Effort & Inspection: normal respiratory effort Auscultation: clear to auscultation bilaterally Cardio Rate: regular rate Rhythm: regular rhythm GI Palpation: soft and no masses Neuro General: patient alert, patient awake and patient oriented x3 Results Last Vital Signs Temp 36.0 C L 11/24/24 06:29 Pulse 64 11/24/24 06:29 Resp 18 11/24/24 06:29 BP 139/61 11/24/24 06:29 Pulse Ox 96 11/24/24 06:29 Time Spent Time spent with Patient: <40 minutes Time was spent: other
[2024-11-24] MEDS: Lactated Ringers 1,000 ML 80 ML IV (06:49)
--- NOTE | 2024-11-24 07:14 | W.ANESPRE ---
General Info Date of Service Date Performed: 11/24/24 Height: 5 ft 3 in Weight: 95.5 kg Body Mass Index (BMI): 37.3 Surgical Procedure: Operation Date: 11/24/24 07:40 Proposed Procedure Side Surgeon p Cystoscopy/Transurethral Injection of Coaptite Noe Singh MD Meds Allergies and Home Medications Allergies Allergy/AdvReac Type Severity Reaction Status Date / Time clindamycin Allergy Intermediate Hives Verified 11/24/24 06:28 Home Medication ?Medication ?Instructions ?Recorded multivitamin 1 tab PO DAILY 09/12/12 acetaminophen 500 mg tablet 1,000 mg (2 x 500 mg) PO Q8H PRN 10/25/18 pain #90 tabs aspirin 81 mg tablet,delayed 81 mg PO DAILY 04/29/19 release fluticasone propionate 110 2 puff inhalation BID #12 grams 10/09/23 mcg/actuation HFA aerosol inhaler ipratropium bromide 21 mcg (0.03 2 spray intranasal BID #30 mL 12/11/23 %) nasal spray latanoprost 0.005 % eye drops 1 drp ophthalmic (eye) QPM 01/27/24 triamcinolone acetonide 0.1 % 1 applic topical BID PRN redness 03/14/24 topical cream #80 grams atorvastatin 10 mg tablet 10 mg PO HS #90 tabs 10/31/24 escitalopram oxalate 10 mg tablet 10 mg PO HS #90 tabs 10/31/24 (Lexapro) losartan 50 mg tablet 50 mg PO DAILY #90 tab-caps 10/31/24 albuterol sulfate 90 mcg/actuation 2 puff inhalation Q6H PRN 11/11/24 aerosol inhaler (Ventolin HFA) shortness of breath or wheezing #25.5 grams estradiol 10 mcg vaginal tablet 10 mcg vaginal .3 times weekly #36 11/11/24 (Yuvafem) tabs gabapentin 100 mg capsule 100 mg PO TID #90 caps 11/11/24 alendronate 70 mg tablet 70 mg PO QWEEK #14 tabs 11/20/24 Current Visit Medications: Current Medications Generic Name Dose Route Start Last Admin Trade Name Freq PRN Reason Stop Dose Admin Ringer's Solution 1,000 mls @ 80 mls/hr 11/24/24 06:00 11/24/24 06:49 IV 11/24/24 23:59 80 mls/hr INFUSION CHRISTIN Administration Cefazolin Sodium/Dextrose 2 gm in 50 mls @ 100 mls/hr 11/24/24 06:00 Ancef Duplex IVPB 11/24/24 23:59 PREOP CHRISTIN IV Miscellaneous Supplies 1 each 11/24/24 06:00 Iv Access IV 11/24/24 23:59 DIRECTED CHRISTIN Sodium Chloride 0 ml 11/24/24 06:00 Normal Saline Flush 10 Ml Syr IV 11/24/24 23:59 PRN PRN Sodium Chloride 0 ml 11/24/24 06:00 Normal Saline 10 Ml Vial IJ 11/24/24 23:59 DIRECTED PRN Sterile Water 0 ml 11/24/24 06:00 Water,Injection,Sterile 10 Ml Vial IJ 11/24/24 23:59 DIRECTED PRN PFSH Active Problems Active Problems: Problem Status Onset Code Obesity (BMI 30-39.9) Acute E66.9 Stress due to spouse with dementia Acute Z63.79 CVA (cerebral vascular accident) Chronic 08/15/16 I63.9 Chronic obstructive lung disease Chronic 09/17/12 J44.9 Depressive disorder Chronic F32.9 Hyperlipidemia Chronic E78.5 Pelvic floor dysfunction Chronic 11/09/16 M62.89 Essential hypertension Acute I10 BMI 38.0-38.9,adult Acute Z68.38 Eczema Acute L30.9 Mixed stress and urge urinary incontinence Acute N39.46 Skin lesions Acute L98.9 Medical History Medical History Elevated blood pressure reading Benign paroxysmal positional vertigo Fibrocystic breast disease Atypical chest pain h/o chest pressure; s/p workup which was neg. Contact dermatitis Palpitations in the past; underwent Holter and MPI. Had no Cardiac problems. Vertigo benign positional vertigo Smoker quit many years ago H/O echocardiogram 06/11/07 EF 63% Carpal tunnel syndrome 11/16/08 Essential hypertension 03/13/13 Tightness in chest 02/04/15 neg stress test Trigger finger, left index finger 01/07/16 Eczema Left knee DJD S/P left TKA Sleep disorder (09/17/12) Plantar fasciitis Neck pain Functional gait abnormality (11/09/16) Per pt. walks indepenedently does not require assitance, and is stable. Diverticulosis of colon without diverticulitis (01/08/09) Derangement of medial meniscus of left knee (12/24/17) Medical History Comments:: Pt. denies left sided weakness Surgical History Surgical History History of total left knee replacement (TKR) (10/24/18) DOS: 10/24/2018 Dr. Obando History of D&C History of tonsillectomy History of bilateral tubal ligation 06/11/92 H/O reduction mammoplasty 06/11/06 Ligation of fallopian tube (~1982) BILAT PART SALPINGEC ECHO (~06/2007) EJECTION FRACTION 63% Colonoscopy - IV Sedation (~01/2009) diverticula Reduction mammoplasty (~09/2006) Tobacco Smoking/Tobacco Use Status: Former Tobacco Use Passive smoking exposure: Yes Second hand exposure: Yes Alcohol Alcohol Intake: current Alcohol intake frequency: a few times a month Alcohol type: wine Substance Use Substance use: Daily Substance use type: marijuana Vital Signs and Lab Results Vital Signs Most Recent Vital Signs in EMR: Most Recent Vital Signs Temp Pulse Resp BP Pulse Ox 36.0 C L 64 18 139/61 96 11/24/24 06:29 11/24/24 06:29 11/24/24 06:29 11/24/24 06:29 11/24/24 06:29 Lab Results Complete Metabolic Panel: Sodium, (136-145) 140 mmol/L 11/11/24, 09:13 Potassium, (3.5-5.1) 4.3 mmol/L 11/11/24, 09:13 Chloride, (98-107) 105 mmol/L 11/11/24, 09:13 Carbon Dioxide, (21.0-32.0) 33.4 mmol/L H 11/11/24, 09:13 BUN, (7-18) 15 mg/dL 11/11/24, 09:13 Creatinine, (0.55-1.02) 0.8 mg/dL 11/11/24, 09:13 Est GFR (CKD-EPI 2020), (mL/min/1.73m2) 75.37 11/11/24, 09:13 Calcium, (8.5-10.1) 9.5 mg/dL 11/11/24, 09:13 Albumin, (3.4-5.0) 3.4 g/dL 11/11/24, 09:13 Glucose, (74-106) 83 mg/dL 11/11/24, 09:13 Hemoglobin A1c, (<5.7) 5.4 % 11/11/24, 09:13 Liver Function Panel: ALT, (14-59) 15 U/L 11/11/24, 09:13 AST, (15-37) 20 U/L 11/11/24, 09:13 Imaging and Studies Imaging and Studies Study information below may be from another EMR and interpreted by another provider. Please see original notes in EMR for more complete details. Stress Test Summary: Date of study: 01/28/2015 *PATIENT PRESENTATION* Height: 162.6cm (64in ) Blood Pressure: Weight: 111.4kg (245lb ) BSA: 2.3m^2 Impressions: Normal study after maximal exercise. Anesthesia Assessment and Plan Anesthesia History Personal History: No History of Anesthesia Complications Family History: No Family History of Anesthesia Complications Exercise Tolerance Exercise Tolerance: Metabolic Equivalents>4 Pertinent Negatives Pertinent Negatives: No Symptoms of GERD, No Major Cardiovascular Symptoms or Complaints and No Major Pulmonary Symptoms or Complaints (rare inhaler use, none recently) Cardiac & Pulmonary Exam Cardiac Exam: Normal S1/S2 Heart Sounds Pulmonary Exam: Clear Bilateral Breath Sounds Implantable Cardiac Device Does patient have a Pacemaker or an ICD?: No Airway Exam Known Difficult Airway: No Mallampati Class: 2 Mouth Opening: Normal (> 3cm) Thyromental Distance: Greater than 3 cm Neck Range of Motion: Full ROM Neck Circumference: Normal Teeth Condition: Generalized Poor Dentition (many missing, none loose per pt) ASA Classification ASA Score: ASA 2 Emergency Case?: No NPO Status NPO Status: NPO Clears >2 hours, Solids >8 hours Anesthesia Plan Resuscitation Status: Full Code Anesthesia Technique: General Anesthesia Airway Planned: Natural Airway Monitors Used: Standard Monitors
[2024-11-24 07:15] VITALS: BMI 37.3
[2024-11-24] MEDS: ceFAZolin 2 GM/50 ML BAG IVPB (07:30)
[2024-11-24] MEDS: Lidocaine 2% Jelly 6 ML SYR (07:46)
[2024-11-24 08:05] VITALS: BP 91/51; PULSE 61; RESP 16; TEMP 36; O2SAT 97
--- NOTE | 2024-11-24 08:05 | W.PM.DSUDISC ---
Date of service: 11/24/24 Discharge Plan Disposition Patient Disposition: Home Condition: Stable Discharge Details Reason For Visit: cystoscopy Attending Provider: Noe Singh Primary Care Provider: Yue Hoffmann Home Meds and New Rx's Prescriptions: No Action aspirin 81 mg tablet,delayed release (DR/EC) 81 mg PO DAILY fluticasone propionate 110 mcg/actuation HFA aerosol inhaler 2 puff Inhalation BID Qty: 12 5RF albuterol sulfate [Ventolin HFA] 90 mcg/actuation HFA aerosol inhaler 2 puff inhalation Q6H PRN (Reason: shortness of breath or wheezing) Qty: 25.5 6RF estradiol [Yuvafem] 10 mcg tablet 10 mcg vaginal .3 times weekly Qty: 36 4RF gabapentin 100 mg capsule 100 mg PO TID Qty: 90 4RF multivitamin 1 EACH tablet 1 tab PO DAILY ipratropium bromide 21 mcg (0.03 %) spray,non-aerosol 2 spray intranasal BID Qty: 30 1RF Rx Instructions: administer into each nostril triamcinolone acetonide 0.1 % cream 1 applic TP BID PRN (Reason: redness) Qty: 80 1RF Rx Instructions: apply to arms atorvastatin 10 mg tablet 10 mg PO HS Qty: 90 3RF losartan 50 mg tablet 50 mg PO DAILY Qty: 90 3RF escitalopram oxalate [Lexapro] 10 mg tablet 10 mg PO HS Qty: 90 3RF alendronate 70 mg tablet 70 mg PO QWEEK Qty: 14 4RF acetaminophen 500 mg tablet 1,000 mg PO Q8H PRN (Reason: pain) Qty: 90 3RF latanoprost 0.005 % drops 1 drp ophthalmic (eye) QPM Patient Comments: INSTILL 1 DROP INTO LEFT EYE EVERY NIGHT AT BEDTIME Discharge Instructions Additional Instructions: no in person followup visit needed at this point, but ask pt to call us in @ 1 week with a progress report Activity:: Activity as Tolerated Shower/Bathe:: 24 hours Diet:: As Tolerated Discharge Orders Discharge Orders: Discharge Order (Routine); Ordered 11/24/24 Ordered By: Noe Singh DS: Diagnosis Discharge Diagnosis (1) Mixed stress and urge urinary incontinence: Status: Acute
--- NOTE | 2024-11-24 08:07 | W.PM.OP ---
Operative Note Operative Note PRE-OP DIAGNOSIS: Urinary incontinence due to ISD POST-OP DIAGNOSIS: same PROCEDURE: cystoscopy with transurthral injection of bulking agent at bladder neck SURGEON: Noe Singh ANESTHESIA TYPE: Local By Surgeon and General:No Airway Refer to Anesthesia Record ESTIMATED BLOOD LOSS: 5 PATHOLOGY: none sent COMPLICATIONS: None Patient was transported to: same day Patient's condition: stable Implants: 2 vials Macroplastique Indications: This is a 79-year-old woman who has a history of mixed urinary incontinence. The urgency portion of her incontinence is much less problematic than the intrinsic sphincter deficiency component. She tends to leak with minimal activity. She did have some benefit from an injection of Coaptite previously. She presents now for repeat injection using a different bulking agent. Findings: Some residual Coaptite visualized at the bladder neck Procedure Description: The patient was given preop antibiotics and brought to the operating room on 11/24/2024. After successful induction of general anesthesia without intubation, she was placed in the dorsal lithotomy position. Her genitalia was prepped with Betadine. The area was draped as well. 2% Xylocaine jelly was then instilled into the urethra to act as a local anesthetic. A 22 Italian rigid cystoscope was passed through the urethra into the bladder. The urethra and bladder were inspected with the 30 degree lens. At the bladder neck, some residual Coaptite could be seen submucosally, but there was evidence of the bladder neck being open at rest. Using a transurethral injection technique we injected 2 vials of Macroplastique submucosally in order to close the bladder neck. At the completion of the procedure, the bladder neck appeared closed at rest. The cystoscope was removed. The bladder was drained with a 14 Italian straight cath. The patient tolerated this procedure well with no complications. Date of Procedure: 11/24/24
[2024-11-24] MEDS: Phenazopyridine 200 MG TAB PO (08:39)
[2024-11-24 08:40] VITALS: BP 119/63; PULSE 55; RESP 16; TEMP 36.1; O2SAT 100
--- NOTE | 2024-11-24 08:44 | W.ANESPOSTOP ---
Postoperative Evaluation Date, Time and Location Date Performed: 11/24/24 Time Performed: 08:42 Patient Location: Day Surgery Unit Vital Signs Most Recent Imported Vital Signs: Most Recent Vital Signs Temp Pulse Resp BP Pulse Ox 36 C L 61 16 91/51 L 97 11/24/24 08:05 11/24/24 08:05 11/24/24 08:05 11/24/24 08:05 11/24/24 08:05 Pain Score Most Recent Pain Score: Most Recent Pain Score Pain Level 0 11/24/24 08:05 Assessment Mental Status: Awake (Alert & Oriented to Patient Baseline) Airway and Respiratory Function: Patent airway with normal (patient baseline) respiratory exam Cardiovascular Function: Hemodynamically Stable Hydration Status: Adequately Hydrated Nausea & Vomiting: No Nausea or Vomiting Pain: Pt. Denies Any Pain Peripheral Nerve Block: Patient did not receive a nerve block
== END 2024-11-24 08:56 | disposition home or self-care (01) ==
PROVIDERS: PCP Family Medicine; Visit Provider Urology
PROC: (CPT 51715; principal; 2024-11-24 07:30)
DX: N36.42 Intrinsic sphincter deficiency (ISD) (principal); N39.46 Mixed incontinence; M62.89 Other specified disorders of muscle; I10 Essential (primary) hypertension; E78.5 Hyperlipidemia, unspecified; J44.9 Chronic obstructive pulmonary disease, unspecified; E66.9 Obesity, unspecified; Z68.37 Body mass index [BMI] 37.0-37.9, adult
CPT/HCPCS: 51715; J0690; J1885; J2003; J2405; J2704; L8606

== ENCOUNTER 2025-04-30 00:53 | Outpatient (CLI) | payer MEDICARE, SELFPAY ==
[2025-04-30 15:17] LABS: Vitamin B12 896 pg/mL (211-911)
[2025-04-30 15:32] LABS: ALT 11 U/L (10-49); AST 17 U/L (<34); Albumin 4.2 g/dL (3.4-5.0); Alkaline Phosphatase 88 U/L (46-116); Anion Gap 7.7 mmol/L (3-11); BUN 9 mg/dL (9-23); Bilirubin, Total 0.40 mg/dL (0.2-1.2); CO2 30.3 mmol/L (20.0-31.0); Calcium 9.6 mg/dL (8.3-10.6); Chloride 107 mmol/L (98-107); Cholesterol 131 mg/dL (<200); Glucose 88 mg/dL (74-106); HDL Cholesterol 50 mg/dL (>40); Potassium 4.5 mmol/L (3.5-5.1); Sodium 145 mmol/L (136-145); Total Protein 6.9 g/dL (5.7-8.2)
== END 2025-04-30 00:54 | disposition home or self-care (01) ==
LOC: LOS 00:53
PROVIDERS: PCP Family Medicine; Visit Provider Family Medicine
DX: E53.8 Deficiency of other specified B group vitamins (principal); E78.5 Hyperlipidemia, unspecified; I10 Essential (primary) hypertension
CPT/HCPCS: 36415; 80053; 80061; 82607